=== PATIENT | male | born 1960 | race Caucasian/White ===

== ENCOUNTER 2019-01-25 04:57 | Inpatient (IN) | payer OTHER ==
[2019-01-25] MEDS ORDERED: morphine CARPU-JECT 4 MG/1 ML DISP.SYRIN IVPUSH ONE ×2 (05:42→06:26)
[2019-01-25] MEDS ORDERED: ONDANSETRON 4 MG/2 ML VIAL IVPUSH ONE (05:42)
[2019-01-25] MEDS ORDERED: ONDANSETRON 4 MG/2 ML VIAL ONE (05:48)
[2019-01-25] MEDS ORDERED: morphine SULFATE 4 MG/ML VIAL ONE (05:48)
[2019-01-25] MEDS ORDERED: HYDROmorphone HCL CARPU-JECT 2 MG/1 ML DISP.SYRIN IVPUSH ONE ×2 (06:30→10:42)
--- NOTE | 2019-01-25 06:46 | PDOC ---
History of Present Illness - General Chief Complaint: Pain Stated Complaint: ABD PAIN Time Seen by Provider: 01/25/19 05:43 History Source: Patient Exam Limitations: No Limitations - History of Present Illness Initial Comments: 58 yo M PMH HTN p/w squeezing abdominal pain. The pain woke him out of sleep at 0300, 10/10, has been there unrelentingly since waking. Denies CP, SOB, wheezing, HAIDER, dizziness, lightheadedness, constipation/diarrhea. 01/25/19 06:42 Past History - Past Medical History Allergies/Adverse Reactions: Allergies Allergy/AdvReac Type Severity Reaction Status Date / Time No Known Allergies Allergy Verified 01/25/19 05:07 Home Medications: Ambulatory Orders Aspirin [Aspirin EC] 81 mg PO PRN 01/25/19 Lisinopril/Hydrochlorothiazide [Lisinopril-Hctz 20-12.5 mg Tab] 1 each PO DAILY 01/25/19 COPD: No HTN: Yes - Surgical History Neurologic Surgery: Yes (back) - Suicide/Smoking/Psychosocial Hx Smoking History: Current every day smoker Have you smoked in the past 12 months: Yes Number of Cigarettes Smoked Daily: 40 Information on smoking cessation initiated: No Hx Alcohol Use: No Drug/Substance Use Hx: No Review of Systems - Review of Systems Able to Perform ROS?: Yes Constitutional: No: Chills, Fever ABD/GI: Yes: Nausea. No: Constipated, Diarrhea, Vomiting : No: Burning, Dysuria, Discharge, Frequency Neurological: No: Headache, Tingling, Tremors Endocrine: Yes: Excessive Sweating *Physical Exam - Vital Signs Last Vital Signs Temp Pulse Resp BP Pulse Ox 97.9 F 65 20 188/109 H 97 01/25/19 05:07 01/25/19 05:07 01/25/19 05:07 01/25/19 05:07 01/25/19 05:07 ED Treatment Course - LABORATORY CBC & Chemistry Diagram: 01/26/19 05:25 01/26/19 05:25 - Medications Given in the ED: ED Medications Discontinued Medications Generic Name Dose Route Start Last Admin Trade Name Freq PRN Reason Stop Dose Admin Morphine Sulfate 4 mg 01/25/19 05:42 01/25/19 05:53 Morphine Injection - IVPUSH 01/25/19 05:43 4 mg ONCE ONE Administration Ondansetron HCl 4 mg 01/25/19 05:42 01/25/19 05:55 Zofran Injection IVPUSH 01/25/19 05:43 4 mg ONCE ONE Administration Medical Decision Making - Medical Decision Making First, r/o aortic dissection. 01/25/19 06:[address] Power. 01/25/19 07:22 *DC/Admit/Observation/Transfer Diagnosis at time of Disposition: Cholelithiasis and acute cholecystitis without obstruction - Discharge Dispostion Condition at time of disposition: Improved - Referrals - Patient Instructions - Post Discharge Activity
[2019-01-25 07:02] LABS: BASO % 0.8 % (0-2.0); EOS % 3.5 % (0-4.5); HEMATOCRIT 50.7 % (35.4-49); HEMOGLOBIN 17.6 GM/dL (11.7-16.9); LYMPH % 28.4 % (8-40); MCHC 34.8 g/dl (32.0-35.9); MEAN CELL VOLUME 100.7 fl (80-96); MEAN PLT VOLUME 8.4 fl (7.5-11.1); MONO % 7.4 % (3.8-10.2); NEUT % 59.9 % (42.8-82.8); PLATELET COUNT 230 K/MM3 (134-434); RBC 5.03 M/mm3 (4.00-5.60); RDW 13.7 % (11.9-15.9); WHITE BLOOD COUNT 5.1 K/mm3 (4.0-10.0)
[2019-01-25] MEDS ORDERED: HYDROmorphone HCl 2 MG/ML VIAL ONE ×2 (07:04→10:44)
[2019-01-25 07:36] LABS: ALBUMIN 3.9 g/dl (3.4-5.0); ALK PHOS 73 U/L (45-117); ANION GAP 7 MMOL/L (8-16); BILIRUBIN,TOTAL 0.4 mg/dL (0.2-1); BLOOD UREA NITROGEN 9.1 mg/dL (7-18); CALCIUM 9.4 mg/dL (8.5-10.1); CHLORIDE 106 mmol/L (98-107); CO2 28 mmol/L (21-32); GLUCOSE,RANDOM 118 mg/dL (74-106); LIPASE 207 U/L (73-393); POTASSIUM 4.2 mmol/L (3.5-5.1); SGOT/AST 28 U/L (15-37); SGPT/ALT 32 U/L (13-61); SODIUM 140 mmol/L (136-145); TOT PROT 7.4 g/dl (6.4-8.2)
--- NOTE | 2019-01-25 07:47 | PDOC ---
*Physical Exam - Vital Signs Last Vital Signs Temp Pulse Resp BP Pulse Ox 97.9 F 65 20 188/109 H 97 01/25/19 05:07 01/25/19 05:07 01/25/19 05:07 01/25/19 05:07 01/25/19 05:07 - Physical Exam Comments: 01/25/19 12:11 Patient with pain control provided immediately preceding exam. Abd obese, soft, tender to palpation RUQ and toward umbilicus in same quadrant, negative juarez for me. No jaundice in sclera / sublingual ED Treatment Course - LABORATORY CBC & Chemistry Diagram: 01/25/19 06:15 01/25/19 06:15 - ADDITIONAL ORDERS Additional order review: Laboratory Results 01/25/19 01/25/19 01/25/19 06:15 06:15 06:15 PT with INR 12.70 INR 1.08 Sodium 140 Potassium 4.2 Chloride 106 Carbon Dioxide 28 Anion Gap 7 L BUN 9.1 Creatinine 1.0 Est GFR (CKD-EPI)AfAm 95.73 Est GFR (CKD-EPI)NonAf 82.60 Random Glucose 118 H Lactic Acid 1.9 Calcium 9.4 Total Bilirubin 0.4 AST 28 ALT 32 Alkaline Phosphatase 73 Creatine Kinase 90 Troponin I < 0.02 Total Protein 7.4 Albumin 3.9 Lipase 207 01/25/19 06:15 RBC 5.03 MCV 100.7 H MCHC 34.8 RDW 13.7 MPV 8.4 Neutrophils % 59.9 Lymphocytes % 28.4 Monocytes % 7.4 Eosinophils % 3.5 Basophils % 0.8 - Medications Given in the ED: ED Medications Discontinued Medications Generic Name Dose Route Start Last Admin Trade Name Shana PRN Reason Stop Dose Admin Hydromorphone HCl 0.5 mg 01/25/19 06:30 01/25/19 07:08 Dilaudid Injection - IVPUSH 01/25/19 06:31 0.5 mg ONCE ONE Administration Morphine Sulfate 4 mg 01/25/19 05:42 01/25/19 05:53 Morphine Injection - IVPUSH 01/25/19 05:43 4 mg ONCE ONE Administration Morphine Sulfate 4 mg 01/25/19 06:26 01/25/19 07:08 Morphine Injection - IVPUSH 01/25/19 06:27 Not Given ONCE ONE Ondansetron HCl 4 mg 01/25/19 05:42 01/25/19 05:55 Zofran Injection IVPUSH 01/25/19 05:43 4 mg ONCE ONE Administration Medical Decision Making - Medical Decision Making 01/25/19 07:43 58yo man with 10/10 squeezing abdominal pain since 3AM. Second episode (1 week ago, 3AM as well for 3 hours) of squeezing RUQ abdominal pain, not associated with meals. Afebrile, HDS. Sign-out received from Dr. Nino. -Abdominal CTA negative for dissection, demonstrated stones and enlarged GB -F/u RUQ GB US -CBC, CMP, PT/INR, Cardiac Profile, Lactate, Lipase all WNL -Afebrile 01/25/19 11:31 -HTN, Obese, >40yo -Required additional 0.5 Dilaudid for pain -US with slightly distended and thick-called (4.5mm) gallbladder with calculi. Borderline hepatomegaly with diffuse fatty infiltration of the liver. -Concern over continued requirement for pain medication, surgery consult 01/25/19 12:08 -Spoke with Dr. Mccarthy, pt admitted -Metronidazole 250 IV given *DC/Admit/Observation/Transfer Diagnosis at time of Disposition: Cholelithiasis and acute cholecystitis without obstruction - Discharge Dispostion Condition at time of disposition: Guarded - Referrals Referrals: Lavon Rivera MD [Primary Care Provider] - - Patient Instructions - Post Discharge Activity
[2019-01-25] MEDS ORDERED: METOCLOPRAMIDE HCL INJECTION 10 MG/2 ML VIAL ONE (10:44)
[2019-01-25 12:23] LABS: INR 0.99 (0.83-1.09); PROTHROMBIN TIME (PATIENT) 11.7 SEC (9.7-13.0)
--- NOTE | 2019-01-25 15:19 | CONSULT ---
Consult - Alcohol/Substance Use Hx Alcohol Use: No - Smoking History Smoking history: Current every day smoker Have you smoked in the past 12 months: Yes Aproximately how many cigarettes per day: 40 Home Medications - Allergies Allergies/Adverse Reactions: Allergies Allergy/AdvReac Type Severity Reaction Status Date / Time No Known Allergies Allergy Verified 01/25/19 05:07 Physical Exam Vital Signs: Vital Signs Temperature 98.1 F 01/25/19 10:03 Pulse Rate 63 01/25/19 10:03 Respiratory Rate 17 01/25/19 10:03 Blood Pressure 151/81 01/25/19 10:03 O2 Sat by Pulse Oximetry (%) 95 01/25/19 10:03 Labs: CBC, BMP 01/25/19 06:15 01/25/19 06:15
--- NOTE | 2019-01-25 15:25 | EKG ---
Test Reason : Blood Pressure : / mmHG Vent. Rate : 066 BPM Atrial Rate : 066 BPM P-R Int : 138 ms QRS Dur : 102 ms QT Int : 430 ms P-R-T Axes : 027 007 053 degrees QTc Int : 450 ms NORMAL SINUS RHYTHM NORMAL ECG NO PREVIOUS ECGS AVAILABLE Confirmed by MD CHARBEL, NICOLE ([id number]) on 01/25/2019 3:24:40 PM Referred By: Confirmed By:NICOLE BARGER MD
[2019-01-25] MEDS ORDERED: ONDANSETRON 4 MG/2 ML VIAL IVPUSH PRN (17:08)
[2019-01-25] MEDS ORDERED: LACTATED RINGERS SOLUTION 1000 ML INFUS.BAG IV ONE ×2 (17:15→17:45)
[2019-01-25] MEDS: LACTATED RINGERS SOLUTION 1,000 ML/1,000 ML INFUS.BAG IV SCH (17:22)
--- NOTE | 2019-01-25 17:25 | HP ---
Admitting History and Physical - Admission Chief Complaint: abdominal pain History of Present Illness: 58yo male PMH obesity, uncontrolled HTN, presented with upper abdominal pain acute in onset last night at 3AM. Pain was focal to the RUQ with radiation to the back. the pain was following a meal of pork chops. It has been constant since starting and IV pain medication was the only thing that seem to help. He had a similar episode of biliary colic 1 week ago after a meal of seafood, put seemed to improve after several hours. He denied fever, chills, nausea and vomiting. He was unaware of gall stones. He has not has not had a colonoscopy. He reports not regularly taking BP medication prescribed by Dr. Rivera. he had pressures 188/110 in the ED. We were asked to evaluate and treat. History Source: Patient, Medical Record Limitations to Obtaining History: No Limitations - Past Medical History Cardiovascular: Yes: HTN (incontrolled) Additional Past Medical History: obesity - Past Surgical History Additional Past Surgical History: Back surgery at [facility], Dental implants - Smoking History Smoking history: Current every day smoker Have you smoked in the past 12 months: Yes Aproximately how many cigarettes per day: 40 - Alcohol/Substance Use Hx Alcohol Use: No Home Medications - Allergies Allergies/Adverse Reactions: Allergies Allergy/AdvReac Type Severity Reaction Status Date / Time No Known Allergies Allergy Verified 01/25/19 05:07 - Home Medications Home Medications: Ambulatory Orders Aspirin [Aspirin EC] 81 mg PO PRN 01/25/19 Lisinopril/Hydrochlorothiazide [Lisinopril-Hctz 20-12.5 mg Tab] 1 each PO DAILY 01/25/19 Family Disease History - Family Disease History Family Disease History: Diabetes: Mother (DM type 2), Heart Disease: Father ( 2nd to [place] 8 years ago), Sister (CABG) Review of Systems - Review of Systems Constitutional: denies: Chills, Fever Eyes: denies: Double Vision, Recent Change in Vision HENT: denies: Throat Pain Neck: denies: Pain on Movement, Tenderness Cardiovascular: denies: Chest Pain, Palpitations Respiratory: denies: Cough, SOB Gastrointestinal: reports: Abdominal Pain, Indigestion. denies: Constipation, Diarrhea Breasts: reports: No Symptoms Reported. denies: Pain Musculoskeletal: reports: Back Pain. denies: Muscle Weakness Integumentary: denies: Lesions, Rash Neurological: denies: Seizure, Syncope Endocrine: denies: Unexplained Weight Gain, Unexplained Weight Loss Hematology/Lymphatic: denies: Easily Bruised, Excessive Bleeding Psychiatric: denies: Anxiety, Depression Physical Examination Vital Signs: Vital Signs Temperature 98.5 F 01/25/19 17:18 Pulse Rate 66 01/25/19 17:18 Respiratory Rate 18 01/25/19 17:18 Blood Pressure 169/95 01/25/19 17:18 O2 Sat by Pulse Oximetry (%) 95 01/25/19 17:18 Constitutional: Yes: Calm, Mild Distress, Obese Eyes: Yes: Conjunctiva Clear, EOM Intact HENT: Yes: Atraumatic, Normocephalic Neck: Yes: Supple, Trachea Midline Cardiovascular: Yes: Regular Rate and Rhythm, S1, S2 Respiratory: Yes: Regular, CTA Bilaterally Gastrointestinal: Yes: Normal Bowel Sounds, Soft, Abdomen, Obese, Hernia (small umbilcal hernia @ 10 oclock), Tenderness (RUQ, - murphys sign), Tenderness, Epigastrium. No: Hepatomegaly, Tenderness, Rebound ...Rectal Exam: Yes: Sphincter Tone Normal. No: Erythema, Hemorrhoids/External , Induration, Mass Renal/: No: CVA Tenderness - Left, CVA Tenderness - Right Breast(s): No: Mass, Skin Changes Musculoskeletal: Yes: Joint Stiffness (lumbar) Extremities: No: Cool, Cyanosis Edema: Yes Peripheral Pulses WNL: Yes Peripheral Pulses: Left Radial: 2+, Right Radial: 2+, Left Doralis Pedis: 2+, Right Dorsalis Pedis: 2+, Left Femoral: 2+, Right Femoral: 2+ Integumentary: No: Jaundice, Rash Neurological: Yes: Alert, Oriented Psychiatric: Yes: Alert, Oriented Labs: CBC, BMP 01/25/19 06:15 01/25/19 06:15 Imaging - Results Ultrasound: Report Reviewed, Image Reviewed Problem List - Problems (1) Cholelithiasis and acute cholecystitis without obstruction Assessment/Plan: 58yo male with uncontrolled HTN and symptomatic cholelithiasis NPO and IVF hydration perioperative IV antibiotics (given implants) Adequate analgesia Discussed with patient risks, benefits and alternatives of laparoscopic possible open cholecystectomy, including but not limited to bleeding, infection , injury to adjacent structures, leak or injury, intraabdominal abscess, incisional hernia, need for further procedures, ; alternatives include antibiotics, delayed or no surgery - risks of this include failure of nonoperative therapy, perforation, sepsis, recurrence, . Patient desires to proceed with operation - will take to OR for above. Informed consent signed for same. Code(s): K80.00 - CALCULUS OF GALLBLADDER W ACUTE CHOLECYST W/O OBSTRUCTION (2) Biliary colic symptom Code(s): K80.50 - CALCULUS OF BILE DUCT W/O CHOLANGITIS OR CHOLECYST W/O OBST (3) Abdominal pain in male Code(s): R10.9 - UNSPECIFIED ABDOMINAL PAIN (4) Obesity (BMI 30.0-34.9) Code(s): E66.9 - OBESITY, UNSPECIFIED (5) Dehydration Code(s): E86.0 - DEHYDRATION
--- NOTE | 2019-01-25 17:38 | CONSULT ---
Consultation: REQUESTING PROVIDER: Dr. Jasmine CONSULT REQUEST: We have been asked to medically evaluate this patient for katheryn- operative medical management of suspected acute cholecystitis HISTORY OF PRESENT ILLNESS: 58 yom with PMHx of HTN, obesity, suspected HARMAN, heavy smoker (almost 70 pack year smoking history) was in his USOH till today around 3 AM, when had sudden onset of squeezing abdominal pain, more in RUQ, failed to resolved for almost an hour, so drove himself to the ED. Positive chills, an episode of brownish, non bloody bilious vomiting. Currently pain resolved after receiving pain medications in the ED. Similar episode 1 week ago but was transient, so did not seek care. Reports high fatty food intake, but similar prior concerns. Independent in ADLs, can walk upto 5 miles without any concerns for exertional chest pain or dyspnea. 12 point ROS done, neg for cough, sputum dyspnea, orthopnea, PND, urinary symptoms, weakness, dizzinses, dark or bloody stools or concerns otherwise. Does report snoring at night. 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 Obese male, ( BMI 32) HEAD: Normal with no signs of trauma. EYES: Pupils equal, round and reactive to light, extraocular movements intact, sclera anicteric, conjunctiva clear. No lid lag. EARS, NOSE, THROAT: Ears normal, nares patent, oropharynx clear without exudates. Moist mucous membranes. NECK: Normal range of motion, supple without lymphadenopathy, JVD, or masses. LUNGS: Breath sounds equal, clear to auscultation bilaterally. No wheezes, and no crackles. No accessory muscle use. HEART: Regular rate and rhythm, normal S1 and S2 ABDOMEN: soft, RUQ tenderness, pos Narvaez's sign, no voluntary or involuntary guarding or rigidity, pos bowel sounds MUSCULOSKELETAL: Normal range of motion at all joints. No bony deformities or tenderness. No CVA tenderness. UPPER EXTREMITIES: 2+ pulses, warm, well-perfused. No cyanosis. No clubbing. Cap refill <2 seconds. No peripheral edema. LOWER EXTREMITIES: 2+ pulses, warm, well-perfused. No calf tenderness. No peripheral edema. NEUROLOGICAL: AAOx3, Cranial nerves II-XII intact. Normal speech. Normal gait. PSYCHIATRIC: Cooperative. Good eye contact. Appropriate mood and affect. Pleasant, joking SKIN: Warm, dry, normal turgor, no rashes or lesions noted. Laboratory Results - last 24 hr 01/25/19 01/25/19 01/25/19 06:15 06:15 06:15 WBC 5.1 RBC 5.03 Hgb 17.6 H Hct 50.7 H MCV 100.7 H MCH 35.0 H MCHC 34.8 RDW 13.7 Plt Count 230 MPV 8.4 Absolute Neuts (auto) 3.1 Neutrophils % 59.9 Lymphocytes % 28.4 Monocytes % 7.4 Eosinophils % 3.5 Basophils % 0.8 Nucleated RBC % 0 PT with INR 11.70 INR 0.99 Sodium 140 Potassium 4.2 Chloride 106 Carbon Dioxide 28 Anion Gap 7 L BUN 9.1 Creatinine 1.0 Est GFR (CKD-EPI)AfAm 95.73 Est GFR (CKD-EPI)NonAf 82.60 Random Glucose 118 H Lactic Acid Calcium 9.4 Total Bilirubin 0.4 AST 28 ALT 32 Alkaline Phosphatase 73 Creatine Kinase 90 Troponin I < 0.02 Total Protein 7.4 Albumin 3.9 Lipase 207 Blood Type Antibody Screen 01/25/19 01/25/19 06:15 06:15 WBC RBC Hgb Hct MCV MCH MCHC RDW Plt Count MPV Absolute Neuts (auto) Neutrophils % Lymphocytes % Monocytes % Eosinophils % Basophils % Nucleated RBC % PT with INR INR Sodium Potassium Chloride Carbon Dioxide Anion Gap BUN Creatinine Est GFR (CKD-EPI)AfAm Est GFR (CKD-EPI)NonAf Random Glucose Lactic Acid 1.9 Calcium Total Bilirubin AST ALT Alkaline Phosphatase Creatine Kinase Troponin I Total Protein Albumin Lipase Blood Type A NEGATIVE Antibody Screen Negative Active Medications Generic Name Dose Route Start Last Admin Trade Name Freq PRN Reason Stop Dose Admin Heparin Sodium (Porcine) 5,000 unit 01/25/19 18:00 Heparin - SQ Q8H-IV LONI Lactated Ringer's 1,000 ml in 1,000 mls @ 125 mls/hr 01/25/19 17:15 01/25/19 17:22 Lactated Ringers Solution IV 125 mls/hr ASDIR LONI Administration Morphine Sulfate 4 mg 01/25/19 17:08 Morphine Sulfate IVPUSH Q4H PRN PAIN LEVEL 7 - 10 Ondansetron HCl 4 mg 01/25/19 17:08 Zofran Injection IVPUSH Q6H PRN NAUSEA Home Medications Medication Instructions Recorded Aspirin [Aspirin EC] 81 mg PO PRN 01/25/19 Lisinopril/Hydrochlorothiazide 1 each PO DAILY 01/25/19 [Lisinopril-Hctz 20-12.5 mg Tab] EKG NSR, no acute ST-T changes CTA chest/A/P pelvis and abdominal ultrasound results reviewed. ASSESSMENT/PLAN: 58 yom with PMHx of HTN, obesity, smoker, admitted with acute calculous cholecystitis -Acute calculous cholecystitis without obstruction -Biliary colic -Uncontrolled HTN, suspect from pain -Obesity -Tobacco abuse/Dependence -Suspected HARMAN -Suspected mild COPD Plan: PO, surgical plans, antibiotics, pain control, IVF per Dr. Mccarthy Would hold Lisinopril/HCTZ in the katheryn-operative period while NPO and with hemodynamic shifts. Pain control. hydralazine prn, will assess for resumption of home ACEi based on hemodynamics and renal function in katheryn-operative period. . RCRI 0, patient 0.4% risk of cardiac , non fatal IA, non fatal cardiac arrest in the katheryn-operative period. Patient moderate risk from cardiovascular standpoint for urgent level of surgery. Recommend monitoring respiratory status monitoring in the katheryn-operative period , DVTPPX per surgery Dispo: We will continue to follow the patient. Thank you for this consultative opportunity. Visit type - Emergency Visit Emergency Visit: Yes Care time: The patient presented to the Emergency Department on the above date and was hospitalized for further evaluation of their emergent condition. - New Patient This patient is new to me today: Yes Date on this admission: 01/25/19 - Critical Care Critical Care patient: No
[2019-01-25] MEDS ORDERED: hydrALAZINE HCL 20 MG/ML VIAL IVPUSH PRN ×2 (18:10→18:25)
[2019-01-25] MEDS ORDERED: PNEUMOC 13-VAL CONJ-DIP CRM/PF 0.5 ML DISP.SYRIN IM ONE (18:26)
[2019-01-25] MEDS ORDERED: PNEUMOCOCCAL 23 VACCINE 0.5 ML VIAL IM ONE (18:30)
[2019-01-25] MEDS: MORPHINE SULFATE 2 MG/ML VIAL IVPUSH PRN (18:34)
[2019-01-25] MEDS: HEPARIN NA (PORCINE) 5,000 UNITS/ML 1ML VIAL SQ SCH (18:36)
[2019-01-25] MEDS: NICOTINE 21 MG/24 HOURS TOPICAL PATCH TD SCH (21:03)
[2019-01-26] MEDS: HEPARIN NA (PORCINE) 5,000 UNITS/ML 1ML VIAL SQ SCH ×3 (01:59→17:46)
[2019-01-26 06:15] LABS: BASO % 0.6 % (0-2.0); EOS % 0.1 % (0-4.5); HEMATOCRIT 47.7 % (35.4-49); HEMOGLOBIN 16.6 GM/dL (11.7-16.9); LYMPH % 7.1 % (8-40); MCH 34.8 pg (25.7-33.7); MCHC 34.9 g/dl (32.0-35.9); MEAN CELL VOLUME 99.8 fl (80-96); MEAN PLT VOLUME 8.7 fl (7.5-11.1); MONO % 5.7 % (3.8-10.2); NEUT % 86.5 % (42.8-82.8); PLATELET COUNT 179 K/MM3 (134-434); RBC 4.78 M/mm3 (4.00-5.60); RDW 13.5 % (11.9-15.9); WHITE BLOOD COUNT 11.4 K/mm3 (4.0-10.0)
[2019-01-26] MEDS ORDERED: PT OWN MED DRAWER 7, Y5N ONE (06:19)
[2019-01-26 06:56] LABS: BILIRUBIN,TOTAL 1.4 mg/dL (0.2-1); BLOOD UREA NITROGEN 6.5 mg/dL (7-18); CALCIUM 8.6 mg/dL (8.5-10.1); CREATININE 0.8 mg/dL (0.55-1.3); MAGNESIUM 1.8 mg/dL (1.8-2.4); PHOSPHOROUS 3.3 mg/dL (2.5-4.9); POTASSIUM 4.1 mmol/L (3.5-5.1); TOT PROT 6.1 g/dl (6.4-8.2)
--- NOTE | 2019-01-26 07:56 | PN ---
Physical Exam: SUBJECTIVE: Patient seen and examined at bed side, complain of RUQ pain , and diffuse abdominal tenderness , denies any fever , chills, N/V. OBJECTIVE: Vital Signs Period Temp Pulse Resp BP Sys/Peters Pulse Ox Last 24 Hr 97.3 F-99.3 F 62-78 17-20 137-186/77-98 95-97 GENERAL: AAOx3 in NAD HEAD: NC/AT EYES: EOMI, Conjunctiva clear, sclera anicteric ENT: moist mucous membrane NECK: Supple, no JVD LUNGS: CTA B/L, no crackles no wheezing no accessory muscle use. HEART: RRR, NSR, normal s1, s2, murmur no M/R/G ABDOMEN: obese , RUQ pain , diffuse tenderness , Narvaez positive. LOWER EXTREMITIES: no edema, +2DP pulse, NEUROLOGICAL: No focal deficit. Normal speech. gait not observed. PSYCHIATRIC: Cooperative. Good eye contact. Appropriate mood and affect. SKIN: Warm, dry, Laboratory Results - last 24 hr 01/25/19 01/25/19 01/25/19 06:15 06:15 20:00 WBC RBC Hgb Hct MCV MCH MCHC RDW Plt Count MPV Absolute Neuts (auto) Neutrophils % Lymphocytes % Monocytes % Eosinophils % Basophils % Nucleated RBC % PT with INR 11.70 INR 0.99 Sodium Potassium Chloride Carbon Dioxide Anion Gap BUN Creatinine Est GFR (CKD-EPI)AfAm Est GFR (CKD-EPI)NonAf Random Glucose Calcium Phosphorus Magnesium Total Bilirubin AST ALT Alkaline Phosphatase Total Protein Albumin Triglycerides Cholesterol Total LDL Cholesterol HDL Cholesterol Blood Type A NEGATIVE A NEGATIVE Antibody Screen Negative Negative 01/26/19 01/26/19 05:25 05:25 WBC 11.4 H RBC 4.78 Hgb 16.6 Hct 47.7 MCV 99.8 H MCH 34.8 H MCHC 34.9 RDW 13.5 Plt Count 179 D MPV 8.7 Absolute Neuts (auto) 9.8 H Neutrophils % 86.5 H D Lymphocytes % 7.1 L D Monocytes % 5.7 Eosinophils % 0.1 D Basophils % 0.6 Nucleated RBC % 0 PT with INR INR Sodium 138 Potassium 4.1 Chloride 104 Carbon Dioxide 26 Anion Gap 8 BUN 6.5 L Creatinine 0.8 Est GFR (CKD-EPI)AfAm 114.13 Est GFR (CKD-EPI)NonAf 98.47 Random Glucose 112 H Calcium 8.6 Phosphorus 3.3 Magnesium 1.8 Total Bilirubin 1.4 H AST 17 ALT 23 Alkaline Phosphatase 63 Total Protein 6.1 L Albumin 3.0 L Triglycerides 74 Cholesterol 146 Total LDL Cholesterol 80 HDL Cholesterol 50 Blood Type Antibody Screen Active Medications Generic Name Dose Route Start Last Admin Trade Name Freq PRN Reason Stop Dose Admin Heparin Sodium (Porcine) 5,000 unit 01/25/19 18:00 01/26/19 01:59 Heparin - SQ 5,000 unit Q8H-IV LONI Administration Hydralazine HCl 10 mg 01/25/19 18:25 Apresoline Injection - IVPUSH Q6H PRN HYPERTENSION Lactated Ringer's 1,000 ml in 1,000 mls @ 125 mls/hr 01/25/19 17:15 01/25/19 17:22 Lactated Ringers Solution IV 125 mls/hr ASDIR LONI Administration Metronidazole 250 mg in 50 mls @ 50 mls/hr 01/25/19 20:15 01/26/19 02:50 Flagyl 250mg Premixed Ivpb - IVPB 50 mls/hr Q8H-IV LONI Administration Morphine Sulfate 4 mg 01/25/19 17:08 01/25/19 18:34 Morphine Sulfate IVPUSH 4 mg Q4H PRN Administration PAIN LEVEL 7 - 10 Nicotine 21 mg 01/25/19 20:30 01/25/19 21:03 Nicoderm Patch - TD 21 mg DAILY LONI Administration Ondansetron HCl 4 mg 01/25/19 17:08 Zofran Injection IVPUSH Q6H PRN NAUSEA ASSESSMENT/PLAN: 58 year old obese male with h.o HTN preseneted with recurrent RUQ pain was found to have acute cholecystitis admitted for LAb cholecystectomy. # Biliary Cholic # Cholilithisis with acute cholecystitis # Uncontrolled HTN # Obesity # Nicotin dependence Plan: * US reviewed with gall bladder wall thickening , no CBD dilation * Abx per ID started on Zosyn * NPO * pain control with morphine * Lab choley by Shari today * IV fluids RL @ 125 CC/hr per surgery * Type and screen , * PT, PTT INR , cbc , cmp * moderate risk for moderate risk surgery * Incentive spirometry * monitor lab * Hydralizine PRN for HTN while NPO * DVTS proph * Zofran for nausea * Monitor in M/S * Nicotine patch Visit type - Emergency Visit Emergency Visit: Yes ED Registration Date: 01/25/19 Care time: The patient presented to the Emergency Department on the above date and was hospitalized for further evaluation of their emergent condition. - New Patient This patient is new to me today: Yes Date on this admission: 01/26/19 - Critical Care Critical Care patient: No ATTENDING PHYSICIAN STATEMENT I saw and evaluated the patient. I reviewed the resident's note and discussed the case with the resident. I agree with the resident's findings and plan as documented. SUBJECTIVE: OBJECTIVE: ASSESSMENT AND PLAN:
[2019-01-26] MEDS: NICOTINE 21 MG/24 HOURS TOPICAL PATCH TD SCH (09:31)
[2019-01-26] MEDS: MORPHINE SULFATE 2 MG/ML VIAL IVPUSH PRN ×3 (10:39→21:30)
--- NOTE | 2019-01-26 12:25 | PN ---
Progress Note, Physician Chief Complaint: abdominal pain History of Present Illness: 58yo male PMH obesity, uncontrolled HTN, presented with upper abdominal pain acute in onset last night at 3AM. Pain was focal to the RUQ with radiation to the back. He has had persistent abdominal pain and complains of hunger. l - Current Medication List Current Medications: Active Medications Heparin Sodium (Porcine) (Heparin -) 5,000 unit SQ Q8H-IV LONI Last Admin: 01/26/19 09:30 Dose: Not Given Hydralazine HCl (Apresoline Injection -) 10 mg IVPUSH Q6H PRN PRN Reason: HYPERTENSION Lactated Ringer's (Lactated Ringers Solution) 1,000 ml in 1,000 mls @ 125 mls/ hr IV ASDIR LONI Last Admin: 01/25/19 17:22 Dose: 125 mls/hr Metronidazole (Flagyl 250mg Premixed Ivpb -) 250 mg in 50 mls @ 50 mls/hr IVPB Q8H-IV LONI Last Admin: 01/26/19 11:21 Dose: 50 mls/hr Morphine Sulfate (Morphine Sulfate) 4 mg IVPUSH Q4H PRN PRN Reason: PAIN LEVEL 7 - 10 Last Admin: 01/26/19 10:39 Dose: 4 mg Nicotine (Nicoderm Patch -) 21 mg TD DAILY [facility] Last Admin: 01/26/19 09:31 Dose: 21 mg Ondansetron HCl (Zofran Injection) 4 mg IVPUSH Q6H PRN PRN Reason: NAUSEA - Objective Vital Signs: Vital Signs Temperature 98.5 F 01/26/19 09:09 Pulse Rate 85 01/26/19 09:09 Respiratory Rate 20 01/26/19 09:09 Blood Pressure 149/81 01/26/19 09:09 O2 Sat by Pulse Oximetry (%) 97 01/25/19 21:00 Vital Signs Period Temp Pulse Resp BP Sys/Peters Pulse Ox Last 24 Hr 98 F-99.2 F 87-95 20-20 140-144/67-92 97 Constitutional: Yes: Well Nourished, No Distress, Calm, Obese Eyes: Yes: Conjunctiva Clear, EOM Intact HENT: Yes: Atraumatic, Normocephalic Neck: Yes: Supple, Trachea Midline Cardiovascular: Yes: Regular Rate and Rhythm, S1, S2 Respiratory: Yes: Regular, CTA Bilaterally Labs: CBC, BMP 01/26/19 05:25 01/26/19 05:25 INR, PTT INR 0.99 (0.83-1.09) 01/25/19 06:15 Problem List - Problems (1) Cholelithiasis and acute cholecystitis without obstruction Assessment/Plan: 58yo male with uncontrolled HTN obesity and symptomatic cholelithiasis with now elevated Tbili 1.4-1.6, unable to di MRCP, can do IOC but OR not equiped to do stone retrieval or intervention. Will consult GI for possible ERCP. NPO and IVF hydartion IV antibiotics per ID GI consult cancel surgery for now This patient will be managed non-operatively Code(s): K80.00 - CALCULUS OF GALLBLADDER W ACUTE CHOLECYST W/O OBSTRUCTION (2) Biliary colic symptom Code(s): K80.50 - CALCULUS OF BILE DUCT W/O CHOLANGITIS OR CHOLECYST W/O OBST (3) Abdominal pain in male Code(s): R10.9 - UNSPECIFIED ABDOMINAL PAIN (4) Obesity (BMI 30.0-34.9) Code(s): E66.9 - OBESITY, UNSPECIFIED (5) Dehydration Code(s): E86.0 - DEHYDRATION
--- NOTE | 2019-01-26 12:58 | CON.ID ---
Consult Consult Specialty:: infectious diseases Referred by:: Reason for Consultation:: abd pain,choleycystitis,leukocytosis - History of Present Illness Chief Complaint: rt upper quadrant abd pain History of Present Illness: 58yo male PMH obesity, uncontrolled HTN, presented with upper abdominal pain according to the patient came on suddenly last night at 3am currently the pain is pretty severe according to the patient he had similar pain about one week back which improved.he had a meal of pork chops . Pain is in ruq and abd is distended He denied fever, chills, nausea and vomiting. He was unaware of gall stones. patient seen by surgical team and plan is for cholecystectomy today - History Source History Provided By: Patient Limitations to Obtaining History: No Limitations - Past Medical History Cardio/Vascular: Yes: HTN (incontrolled) - Alcohol/Substance Use Hx Alcohol Use: No - Smoking History Smoking history: Current every day smoker Have you smoked in the past 12 months: Yes Aproximately how many cigarettes per day: 40 Home Medications - Allergies Allergies/Adverse Reactions: Allergies Allergy/AdvReac Type Severity Reaction Status Date / Time No Known Allergies Allergy Verified 01/25/19 05:07 - Home Medications Home Medications: Ambulatory Orders Aspirin [Aspirin EC] 81 mg PO PRN 01/25/19 Lisinopril/Hydrochlorothiazide [Lisinopril-Hctz 20-12.5 mg Tab] 1 each PO DAILY 01/25/19 Family Disease History - Family Disease History Family Disease History: Diabetes: Mother (DM type 2), Heart Disease: Father ( 2nd to [place] 8 years ago), Sister (CABG) Review of Systems - Review of Systems Constitutional: reports: No Symptoms Eyes: reports: No Symptoms HENT: reports: No Symptoms Neck: reports: No Symptoms Cardiovascular: reports: No Symptoms Respiratory: reports: No Symptoms Gastrointestinal: reports: Abdominal Pain Genitourinary: reports: No Symptoms Musculoskeletal: reports: No Symptoms Integumentary: reports: No Symptoms Neurological: reports: No Symptoms Endocrine: reports: No Symptoms Hematology/Lymphatic: reports: No Symptoms Psychiatric: reports: No Symptoms Physical Exam Vital Signs: Vital Signs Temperature 98.5 F 01/26/19 09:09 Pulse Rate 85 01/26/19 09:09 Respiratory Rate 20 01/26/19 09:09 Blood Pressure 149/81 01/26/19 09:09 O2 Sat by Pulse Oximetry (%) 97 01/25/19 21:00 Constitutional: Yes: Well Nourished, Moderate Distress, Obese Eyes: Yes: Conjunctiva Clear Neck: Yes: Supple, Trachea Midline Cardiovascular: Yes: Regular Rate and Rhythm Respiratory: Yes: Regular, CTA Bilaterally Gastrointestinal: Yes: Distention, Tenderness (ruq), Other (absent bowel sounds) Musculoskeletal: Yes: WNL Extremities: Yes: WNL Neurological: Yes: Alert, Oriented Psychiatric: Yes: Alert, Oriented Labs: CBC, BMP 01/26/19 05:25 01/26/19 05:25 Imaging - Results Chest X-ray: Report Reviewed, Image Reviewed Cat Scan: Report Reviewed, Image Reviewed Ultrasound: Report Reviewed, Image Reviewed Assessment/Plan Problem List - Problems (1) Cholelithiasis and acute cholecystitis without obstruction Code(s): K80.00 - CALCULUS OF GALLBLADDER W ACUTE CHOLECYST W/O OBSTRUCTION (2) Biliary colic symptom Code(s): K80.50 - CALCULUS OF BILE DUCT W/O CHOLANGITIS OR CHOLECYST W/O OBST (3) Abdominal pain in male Code(s): R10.9 - UNSPECIFIED ABDOMINAL PAIN (4) Obesity (BMI 30.0-34.9) Code(s): E66.9 - OBESITY, UNSPECIFIED (5) Dehydration Code(s): E86.0 - DEHYDRATION plan will start patient on zosyn close monitoring of tenderness surgery on case rest as per the team
[2019-01-26] MEDS ORDERED: PIPERACILLIN/TAZOBACTAM 3.375 GM VIAL IVPB ONE ×2 (13:23→17:18)
[2019-01-26] MEDS ORDERED: DEXTROSE 5%-WATER - 50 ML IVPB ONE ×2 (13:23→17:18)
[2019-01-26] MEDS: PIPERACILLIN/TAZOB 3.375 GM 3.375 GM in DEXTROSE 5%-WATER - 50 ML IVPB SCH ×2 (13:31→17:46)
[2019-01-26] MEDS: LACTATED RINGERS SOLUTION 1,000 ML/1,000 ML INFUS.BAG IV SCH ×3 (15:11→22:56)
--- NOTE | 2019-01-26 17:41 | PN ---
Teaching Attending Note Name of Resident: Jabari Brambila ATTENDING PHYSICIAN STATEMENT I saw and evaluated the patient. I reviewed the resident's note and discussed the case with the resident. I agree with the resident's findings and plan as documented. SUBJECTIVE: Mr Wilkerson complains of abdominal pain. Denies cp and sob. Asking when his surgery is OBJECTIVE: Last Vital Signs Temp Pulse Resp BP Pulse Ox 37.1 C 95 H 20 140/92 97 01/26/19 15:00 01/26/19 15:00 01/26/19 15:00 01/26/19 15:00 01/25/19 21:00 Gen: nad, obese Pulm: ctab w/o w/r/r CV: rrr w/o m/r/g Abd: +bs, TTP in RUQ Ext: no c/c/e CBC, BMP 01/26/19 05:25 01/26/19 05:25 ASSESSMENT AND PLAN: Problem List - Problems (1) Cholelithiasis and acute cholecystitis without obstruction Assessment/Plan: -planning for surgery today -ID note reviewed -started on zosyn Code(s): K80.00 - CALCULUS OF GALLBLADDER W ACUTE CHOLECYST W/O OBSTRUCTION (2) HTN (hypertension) Assessment/Plan: -restart lisinopril and HCTZ after surgery Code(s): I10 - ESSENTIAL (PRIMARY) HYPERTENSION
[2019-01-27] MEDS ORDERED: DEXTROSE 5%-WATER - 50 ML IVPB ONE ×3 (02:34→17:11)
[2019-01-27] MEDS ORDERED: PIPERACILLIN/TAZOBACTAM 3.375 GM VIAL IVPB ONE ×3 (02:34→17:11)
[2019-01-27] MEDS: HEPARIN NA (PORCINE) 5,000 UNITS/ML 1ML VIAL SQ SCH ×3 (02:44→18:04)
[2019-01-27] MEDS: PIPERACILLIN/TAZOB 3.375 GM 3.375 GM in DEXTROSE 5%-WATER - 50 ML IVPB SCH ×3 (02:44→18:04)
[2019-01-27] MEDS: MORPHINE SULFATE 2 MG/ML VIAL IVPUSH PRN ×2 (06:21→14:32)
[2019-01-27] MEDS: LACTATED RINGERS SOLUTION 1,000 ML/1,000 ML INFUS.BAG IV SCH ×2 (08:53→17:33)
--- NOTE | 2019-01-27 08:58 | PN ---
Progress Note, Physician History of Present Illness: patient still with abd pain plan for surgery today - Current Medication List Current Medications: Active Medications Heparin Sodium (Porcine) (Heparin -) 5,000 unit SQ Q8H-IV LONI Last Admin: 01/27/19 02:44 Dose: 5,000 unit Hydralazine HCl (Apresoline Injection -) 10 mg IVPUSH Q6H PRN PRN Reason: HYPERTENSION Lactated Ringer's (Lactated Ringers Solution) 1,000 ml in 1,000 mls @ 125 mls/ hr IV ASDIR LONI Last Admin: 01/27/19 08:53 Dose: 125 mls/hr Piperacillin Sod/Tazobactam (Sod 3.375 gm/ Dextrose) 50 mls @ 100 mls/hr IVPB Q8H-IV LONI; Protocol Last Admin: 01/27/19 02:44 Dose: 100 mls/hr Morphine Sulfate (Morphine Sulfate) 4 mg IVPUSH Q4H PRN PRN Reason: PAIN LEVEL 7 - 10 Last Admin: 01/27/19 06:21 Dose: 4 mg Nicotine (Nicoderm Patch -) 21 mg TD DAILY [facility] Last Admin: 01/26/19 09:31 Dose: 21 mg Ondansetron HCl (Zofran Injection) 4 mg IVPUSH Q6H PRN PRN Reason: NAUSEA - Objective Vital Signs: Vital Signs Temperature 98 F 01/27/19 05:00 Pulse Rate 90 01/27/19 05:00 Respiratory Rate 20 01/27/19 05:00 Blood Pressure 140/67 01/27/19 05:00 O2 Sat by Pulse Oximetry (%) 97 01/26/19 21:00 Constitutional: Yes: Calm, Mild Distress Cardiovascular: Yes: Regular Rate and Rhythm Respiratory: Yes: Regular, CTA Bilaterally Gastrointestinal: Yes: Normal Bowel Sounds, Soft Musculoskeletal: Yes: WNL Extremities: Yes: WNL Neurological: Yes: Alert, Oriented Psychiatric: Yes: Alert, Oriented Labs: CBC, BMP 01/26/19 05:25 01/26/19 05:25 INR, PTT INR 0.99 (0.83-1.09) 01/25/19 06:15 Assessment/Plan Problem List - Problems (1) Cholelithiasis and acute cholecystitis without obstruction Code(s): K80.00 - CALCULUS OF GALLBLADDER W ACUTE CHOLECYST W/O OBSTRUCTION (2) Biliary colic symptom Code(s): K80.50 - CALCULUS OF BILE DUCT W/O CHOLANGITIS OR CHOLECYST W/O OBST (3) Abdominal pain in male Code(s): R10.9 - UNSPECIFIED ABDOMINAL PAIN (4) Obesity (BMI 30.0-34.9) Code(s): E66.9 - OBESITY, UNSPECIFIED (5) Dehydration Code(s): E86.0 - DEHYDRATION plan continue abx await for surgery rest as per the team
[2019-01-27 09:19] LABS: BASO % 0.6 % (0-2.0); EOS % 0.3 % (0-4.5); HEMOGLOBIN 16.4 GM/dL (11.7-16.9); LYMPH % 6.9 % (8-40); MCH 35.1 pg (25.7-33.7); MCHC 34.8 g/dl (32.0-35.9); MEAN CELL VOLUME 100.9 fl (80-96); MEAN PLT VOLUME 8.8 fl (7.5-11.1); MONO % 6.1 % (3.8-10.2); NEUT % 86.1 % (42.8-82.8); PLATELET COUNT 174 K/MM3 (134-434); RBC 4.66 M/mm3 (4.00-5.60); RDW 13.5 % (11.9-15.9); WHITE BLOOD COUNT 13.7 K/mm3 (4.0-10.0)
[2019-01-27 09:56] LABS: ALBUMIN 2.8 g/dl (3.4-5.0); BILIRUBIN,TOTAL 1.6 mg/dL (0.2-1); BLOOD UREA NITROGEN 8.8 mg/dL (7-18); CALCIUM 8.5 mg/dL (8.5-10.1); CREATININE 0.9 mg/dL (0.55-1.3); POTASSIUM 3.9 mmol/L (3.5-5.1)
[2019-01-27] MEDS: NICOTINE 21 MG/24 HOURS TOPICAL PATCH TD SCH (10:12)
--- NOTE | 2019-01-27 11:57 | PN ---
Physical Exam: SUBJECTIVE: Patient seen and examined still NPO wbc elavted and surgery was delyed to R.O CBD stone . feeling hungry , but no fever chills or chest pain was reported. OBJECTIVE: Vital Signs Period Temp Pulse Resp BP Sys/Peters Pulse Ox Last 24 Hr 98 F-99.2 F 87-95 20-20 140-144/67-92 97 GENERAL: AAOx3 in NAD HEAD: NC/AT EYES: EOMI, Conjunctiva clear, sclera anicteric ENT: moist mucous membrane NECK: Supple, no JVD LUNGS: CTA B/L, no crackles no wheezing no accessory muscle use. HEART: RRR, NSR, normal s1, s2, murmur no M/R/G ABDOMEN: obese , RUQ pain , diffuse tenderness , Narvaez positive. LOWER EXTREMITIES: no edema, +2DP pulse, NEUROLOGICAL: No focal deficit. Normal speech. gait not observed. PSYCHIATRIC: Cooperative. Good eye contact. Appropriate mood and affect. SKIN: Warm, dry, Laboratory Results - last 24 hr 01/27/19 01/27/19 01/27/19 08:02 08:02 11:41 WBC 13.7 H RBC 4.66 Hgb 16.4 Hct 47.0 MCV 100.9 H MCH 35.1 H MCHC 34.8 RDW 13.5 Plt Count 174 MPV 8.8 Absolute Neuts (auto) 11.8 H Neutrophils % 86.1 H Lymphocytes % 6.9 L Monocytes % 6.1 Eosinophils % 0.3 D Basophils % 0.6 Nucleated RBC % 0 Sodium 138 Potassium 3.9 Chloride 103 Carbon Dioxide 24 Anion Gap 10 BUN 8.8 Creatinine 0.9 Est GFR (CKD-EPI)AfAm 108.73 Est GFR (CKD-EPI)NonAf 93.82 POC Glucometer 120 Random Glucose 85 Calcium 8.5 Total Bilirubin 1.6 H AST 14 L ALT 18 Alkaline Phosphatase 59 Total Protein 6.0 L Albumin 2.8 L Active Medications Generic Name Dose Route Start Last Admin Trade Name Freq PRN Reason Stop Dose Admin Heparin Sodium (Porcine) 5,000 unit 01/25/19 18:00 01/27/19 10:12 Heparin - SQ 5,000 unit Q8H-IV LONI Administration Hydralazine HCl 10 mg 01/25/19 18:25 Apresoline Injection - IVPUSH Q6H PRN HYPERTENSION Lactated Ringer's 1,000 ml in 1,000 mls @ 125 mls/hr 01/25/19 17:15 01/27/19 08:53 Lactated Ringers Solution IV 125 mls/hr ASDIR LONI Administration Piperacillin Sod/Tazobactam 50 mls @ 100 mls/hr 01/26/19 13:00 01/27/19 10:12 Sod 3.375 gm/ Dextrose IVPB 100 mls/hr Q8H-IV LONI Administration Protocol Morphine Sulfate 4 mg 01/25/19 17:08 01/27/19 06:21 Morphine Sulfate IVPUSH 4 mg Q4H PRN Administration PAIN LEVEL 7 - 10 Nicotine 21 mg 01/25/19 20:30 01/27/19 10:12 Nicoderm Patch - TD 21 mg DAILY LONI Administration Ondansetron HCl 4 mg 01/25/19 17:08 Zofran Injection IVPUSH Q6H PRN NAUSEA CBC, BMP 01/27/19 08:02 01/27/19 08:02 ASSESSMENT/PLAN: 58 year old obese male with h.o HTN preseneted with recurrent RUQ pain was found to have acute cholecystitis admitted for LAb cholecystectomy. # Biliary Cholic # Cholilithisis with acute cholecystitis # Uncontrolled HTN # Obesity # Nicotin dependence # worsening Leuckocytosis r.o sepsis # R.O choledocholithiasis Plan: * US reviewed with gall bladder wall thickening , no CBD dilation * Abx per ID started on Zosyn cont * NPO * pain control with morphine * Lab choley by Shari pending GI evaluation to R.O CBD stones * IV fluids RL @ 125 CC/hr per surgery * Type and screen , * PT, PTT INR , cbc , cmp * moderate risk for moderate risk surgery * Incentive spirometry * monitor lab * Hydralizine PRN for HTN while NPO * DVTS proph * Zofran for nausea * Monitor in M/S * Nicotine patch Visit type - Emergency Visit Emergency Visit: Yes ED Registration Date: 01/25/19 Care time: The patient presented to the Emergency Department on the above date and was hospitalized for further evaluation of their emergent condition. - New Patient This patient is new to me today: No - Critical Care Critical Care patient: No ATTENDING PHYSICIAN STATEMENT I saw and evaluated the patient. I reviewed the resident's note and discussed the case with the resident. I agree with the resident's findings and plan as documented. SUBJECTIVE: OBJECTIVE: ASSESSMENT AND PLAN:
[2019-01-27] MEDS ORDERED: ACETAMINOPHEN 1000 MG/100 ML VIAL (NON FORMULARY) IVPB ONE (17:20)
--- NOTE | 2019-01-27 18:04 | PN ---
Teaching Attending Note Name of Resident: Jabari Brambila ATTENDING PHYSICIAN STATEMENT I saw and evaluated the patient. I reviewed the resident's note and discussed the case with the resident. I agree with the resident's findings and plan as documented. SUBJECTIVE: Mr Wilkerson is frustrated that his surgery has not occurred yet. His abdominal pain is controlled. Denies cp and sob. OBJECTIVE: Last Vital Signs Temp Pulse Resp BP Pulse Ox 37.4 C 90 20 156/103 H 95 01/27/19 17:22 01/27/19 17:22 01/27/19 17:22 01/27/19 17:22 01/27/19 09:00 Gen: nad Pulm: ctab w/o w/r/r CV: rrr w/o m/r/g Abd: +bs, s/nd, TTP in RUQ Ext: no c/c/e CBC, BMP 01/27/19 08:02 01/27/19 08:02 ASSESSMENT AND PLAN: (1) Cholelithiasis and acute cholecystitis without obstruction Assessment/Plan: -case d/w Dr Mccarthy -concern for possible biliary stone -GI to be consulted Code(s): K80.00 - CALCULUS OF GALLBLADDER W ACUTE CHOLECYST W/O OBSTRUCTION (2) HTN (hypertension) Assessment/Plan: -restart lisinopril and HCTZ after surgery -slightly elevated but not urgent -prn IV hydralazine Code(s): I10 - ESSENTIAL (PRIMARY) HYPERTENSION Problem List - Problems (1) Cholelithiasis and acute cholecystitis without obstruction Code(s): K80.00 - CALCULUS OF GALLBLADDER W ACUTE CHOLECYST W/O OBSTRUCTION (2) HTN (hypertension) Code(s): I10 - ESSENTIAL (PRIMARY) HYPERTENSION
--- NOTE | 2019-01-27 19:29 | CON.GI ---
Consult Consult Specialty:: GI - History of Present Illness History of Present Illness: 58 y/o male was doing well until 3 days ago when he developed 10/10 epigastric and RUQ pain associated with T.bili 1.3. On admission the ultrasound revealed a stone in the gallbladder neck associated with thickened gallbladder wall, normal CBD and intrahepatic duct. I was to see patient to perform ERCP prior to cholecystectomy. - Past Medical History Cardio/Vascular: Yes: HTN (incontrolled) - Alcohol/Substance Use Hx Alcohol Use: No - Smoking History Smoking history: Current every day smoker Have you smoked in the past 12 months: Yes Aproximately how many cigarettes per day: 40 Home Medications - Allergies Allergies/Adverse Reactions: Allergies Allergy/AdvReac Type Severity Reaction Status Date / Time No Known Allergies Allergy Verified 01/25/19 05:07 - Home Medications Home Medications: Ambulatory Orders Aspirin [Aspirin EC] 81 mg PO PRN 01/25/19 Lisinopril/Hydrochlorothiazide [Lisinopril-Hctz 20-12.5 mg Tab] 1 each PO DAILY 01/25/19 Family Disease History - Family Disease History Family Disease History: Diabetes: Mother (DM type 2), Heart Disease: Father ( 2nd to [place] 8 years ago), Sister (CABG) Physical Exam-GI Vital Signs: Vital Signs Temperature 98.8 F 01/27/19 18:15 Pulse Rate 88 01/27/19 18:15 Respiratory Rate 20 01/27/19 18:15 Blood Pressure 147/87 01/27/19 18:15 O2 Sat by Pulse Oximetry (%) 95 01/27/19 09:00 Constitutional: Yes: Obese Eyes: Yes: Conjunctiva Clear HENT: Yes: Atraumatic Neck: Yes: Trachea Midline Cardiovascular: Yes: Regular Rate and Rhythm Respiratory: Yes: CTA Bilaterally ...Palpate: Yes: Soft, Tenderness (--ruq). No: Firm/Rigid, Guarding, Hepatomegaly, Mass, Splenomegaly Labs: CBC, BMP 01/27/19 08:02 01/27/19 08:02 INR, PTT INR 0.99 (0.83-1.09) 01/25/19 06:15 Problem List - Problems (1) Acute cholecystitis Assessment/Plan: associated with mild elevation T.bili R> d/w Dr Mccarthy, patient unlikely has CBD stone however will need intraop cholangiogram MRCP could not be done because of screw and plated in his back Code(s): K81.0 - ACUTE CHOLECYSTITIS
[2019-01-28] MEDS ORDERED: PIPERACILLIN/TAZOBACTAM 3.375 GM VIAL IVPB ONE ×2 (01:22→09:14)
[2019-01-28] MEDS ORDERED: DEXTROSE 5%-WATER - 50 ML IVPB ONE ×2 (01:22→09:14)
[2019-01-28] MEDS: LACTATED RINGERS SOLUTION 1,000 ML/1,000 ML INFUS.BAG IV SCH (01:27)
[2019-01-28] MEDS: MORPHINE SULFATE 2 MG/ML VIAL IVPUSH PRN (01:27)
[2019-01-28] MEDS: PIPERACILLIN/TAZOB 3.375 GM 3.375 GM in DEXTROSE 5%-WATER - 50 ML IVPB SCH ×3 (01:27→18:23)
[2019-01-28] MEDS: HEPARIN NA (PORCINE) 5,000 UNITS/ML 1ML VIAL SQ SCH ×3 (01:35→21:31)
[2019-01-28] MEDS ORDERED: PT OWN MED DRAWER 7, Y5N ONE ×2 (04:18→04:41)
[2019-01-28] MEDS ORDERED: ACETAMINOPHEN 1000 MG/100 ML VIAL (NON FORMULARY) IVPB PRN (08:45)
[2019-01-28 08:59] LABS: BASO % 0.8 % (0-2.0); HEMATOCRIT 47.1 % (35.4-49); HEMOGLOBIN 16.5 GM/dL (11.7-16.9); LYMPH % 3.4 % (8-40); MCH 35.3 pg (25.7-33.7); MEAN CELL VOLUME 100.8 fl (80-96); MONO % 4.1 % (3.8-10.2); NEUT % 91.7 % (42.8-82.8); PLATELET COUNT 190 K/MM3 (134-434); RBC 4.67 M/mm3 (4.00-5.60); RDW 13.4 % (11.9-15.9); WHITE BLOOD COUNT 16.7 K/mm3 (4.0-10.0)
[2019-01-28] MEDS: NICOTINE 21 MG/24 HOURS TOPICAL PATCH TD SCH (09:20)
--- NOTE | 2019-01-28 09:32 | PN ---
Progress Note, Physician History of Present Illness: stable still with abd pain plan for surgery today - Current Medication List Current Medications: Active Medications Acetaminophen (Ofirmev Injection -) 1,000 mg IVPB Q8H PRN PRN Reason: PAIN Last Admin: 01/28/19 09:19 Dose: 1,000 mg Heparin Sodium (Porcine) (Heparin -) 5,000 unit SQ Q8H-IV LONI Last Admin: 01/28/19 01:35 Dose: 5,000 unit Hydralazine HCl (Apresoline Injection -) 10 mg IVPUSH Q6H PRN PRN Reason: HYPERTENSION Last Admin: 01/28/19 04:38 Dose: 10 mg Lactated Ringer's (Lactated Ringers Solution) 1,000 ml in 1,000 mls @ 125 mls/ hr IV ASDIR LONI Last Admin: 01/28/19 01:27 Dose: 125 mls/hr Piperacillin Sod/Tazobactam (Sod 3.375 gm/ Dextrose) 50 mls @ 100 mls/hr IVPB Q8H-IV LONI; Protocol Last Admin: 01/28/19 09:20 Dose: 100 mls/hr Morphine Sulfate (Morphine Sulfate) 4 mg IVPUSH Q4H PRN PRN Reason: PAIN LEVEL 7 - 10 Last Admin: 01/28/19 01:27 Dose: 4 mg Nicotine (Nicoderm Patch -) 21 mg TD DAILY [facility] Last Admin: 01/28/19 09:20 Dose: 21 mg Ondansetron HCl (Zofran Injection) 4 mg IVPUSH Q6H PRN PRN Reason: NAUSEA - Objective Vital Signs: Vital Signs Temperature 97.9 F 01/28/19 05:34 Pulse Rate 99 H 01/28/19 05:34 Respiratory Rate 18 01/28/19 05:34 Blood Pressure 160/98 01/28/19 05:34 O2 Sat by Pulse Oximetry (%) 96 01/27/19 21:00 Constitutional: Yes: No Distress, Calm Cardiovascular: Yes: S1, S2 Respiratory: Yes: Regular, CTA Bilaterally Gastrointestinal: Yes: Soft, Tenderness Musculoskeletal: Yes: WNL Extremities: Yes: WNL Neurological: Yes: Alert, Oriented Psychiatric: Yes: Alert, Oriented Labs: CBC, BMP 01/28/19 07:51 INR, PTT INR 0.99 (0.83-1.09) 01/25/19 06:15 Assessment/Plan Problem List - Problems (1) Cholelithiasis and acute cholecystitis without obstruction Code(s): K80.00 - CALCULUS OF GALLBLADDER W ACUTE CHOLECYST W/O OBSTRUCTION (2) Biliary colic symptom Code(s): K80.50 - CALCULUS OF BILE DUCT W/O CHOLANGITIS OR CHOLECYST W/O OBST (3) Abdominal pain in male Code(s): R10.9 - UNSPECIFIED ABDOMINAL PAIN (4) Obesity (BMI 30.0-34.9) Code(s): E66.9 - OBESITY, UNSPECIFIED (5) Dehydration Code(s): E86.0 - DEHYDRATION plan continue abx await for surgery rest as per the team
[2019-01-28 09:38] LABS: ALBUMIN 2.7 g/dl (3.4-5.0); BILIRUBIN,DIRECT 0.7 mg/dL (0.0-0.2); BILIRUBIN,TOTAL 1.5 mg/dL (0.2-1); BLOOD UREA NITROGEN 9.7 mg/dL (7-18); CALCIUM 8.9 mg/dL (8.5-10.1); CREATININE 0.7 mg/dL (0.55-1.3); POTASSIUM 3.8 mmol/L (3.5-5.1); TOT PROT 5.9 g/dl (6.4-8.2)
--- NOTE | 2019-01-28 10:21 | PN ---
Physical Exam: SUBJECTIVE: Patient seen and examined at bed side , very upset because surgery was delayed , complain of duffuse abdominal tenderness and bloating. denies any fever, chills. OBJECTIVE: Vital Signs Period Temp Pulse Resp BP Sys/Peters Pulse Ox Last 24 Hr 97.9 F-99.4 F 85-99 16-20 139-171/85-107 96 GENERAL: AAOx3 in NAD HEAD: NC/AT EYES: EOMI, Conjunctiva clear, sclera anicteric ENT: moist mucous membrane NECK: Supple, no JVD LUNGS: CTA B/L, no crackles no wheezing no accessory muscle use. HEART: RRR, NSR, normal s1, s2, murmur no M/R/G ABDOMEN: obese , RUQ pain , diffuse tenderness , Narvaez positive. LOWER EXTREMITIES: no edema, +2DP pulse, NEUROLOGICAL: No focal deficit. Normal speech. gait not observed. PSYCHIATRIC: Cooperative. Good eye contact. Appropriate mood and affect. SKIN: Warm, dry, Laboratory Results - last 24 hr 01/27/19 01/27/19 01/27/19 11:41 17:27 20:56 WBC RBC Hgb Hct MCV MCH MCHC RDW Plt Count MPV Absolute Neuts (auto) Neutrophils % Lymphocytes % Monocytes % Eosinophils % Basophils % Nucleated RBC % Sodium Potassium Chloride Carbon Dioxide Anion Gap BUN Creatinine Est GFR (CKD-EPI)AfAm Est GFR (CKD-EPI)NonAf POC Glucometer 120 104 94 Random Glucose Calcium Total Bilirubin Direct Bilirubin AST ALT Alkaline Phosphatase Total Protein Albumin 01/28/19 01/28/19 01/28/19 05:51 07:51 07:51 WBC 16.7 H RBC 4.67 Hgb 16.5 Hct 47.1 MCV 100.8 H MCH 35.3 H MCHC 35.0 RDW 13.4 Plt Count 190 MPV 9.0 Absolute Neuts (auto) 15.4 H Neutrophils % 91.7 H Lymphocytes % 3.4 L D Monocytes % 4.1 Eosinophils % 0.0 D Basophils % 0.8 Nucleated RBC % 0 Sodium 137 Potassium 3.8 Chloride 104 Carbon Dioxide 23 Anion Gap 11 BUN 9.7 Creatinine 0.7 Est GFR (CKD-EPI)AfAm 120.56 Est GFR (CKD-EPI)NonAf 104.02 POC Glucometer 113 Random Glucose 92 Calcium 8.9 Total Bilirubin 1.5 H Direct Bilirubin 0.7 H AST 19 ALT 19 Alkaline Phosphatase 75 Total Protein 5.9 L Albumin 2.7 L Active Medications Generic Name Dose Route Start Last Admin Trade Name Shana PRN Reason Stop Dose Admin Acetaminophen 1,000 mg 01/28/19 08:45 01/28/19 09:19 Ofirmev Injection - IVPB 1,000 mg Q8H PRN Administration PAIN Heparin Sodium (Porcine) 5,000 unit 01/25/19 18:00 01/28/19 09:53 Heparin - SQ 5,000 unit Q8H-IV LONI Administration Hydralazine HCl 10 mg 01/25/19 18:25 01/28/19 04:38 Apresoline Injection - IVPUSH 10 mg Q6H PRN Administration HYPERTENSION Lactated Ringer's 1,000 ml in 1,000 mls @ 125 mls/hr 01/25/19 17:15 01/28/19 01:27 Lactated Ringers Solution IV 125 mls/hr ASDIR LONI Administration Piperacillin Sod/Tazobactam 50 mls @ 100 mls/hr 01/26/19 13:00 01/28/19 09:20 Sod 3.375 gm/ Dextrose IVPB 100 mls/hr Q8H-IV LONI Administration Protocol Morphine Sulfate 4 mg 01/25/19 17:08 01/28/19 01:27 Morphine Sulfate IVPUSH 4 mg Q4H PRN Administration PAIN LEVEL 7 - 10 Nicotine 21 mg 01/25/19 20:30 01/28/19 09:20 Nicoderm Patch - TD 21 mg DAILY LONI Administration Ondansetron HCl 4 mg 01/25/19 17:08 Zofran Injection IVPUSH Q6H PRN NAUSEA CBC, BMP 01/28/19 07:51 01/28/19 07:51 ASSESSMENT/PLAN: 58 year old obese male with h.o HTN preseneted with recurrent RUQ pain was found to have acute cholecystitis admitted for LAb cholecystectomy. # Biliary Cholic # Cholilithisis with acute cholecystitis # Uncontrolled HTN # Obesity # Nicotin dependence # worsening Leuckocytosis r.o sepsis # R.O choledocholithiasis Plan: * US reviewed with gall bladder wall thickening , no CBD dilation * Abx per ID started on Zosyn, cont * NPO possible surgery today * pain control with morphine * Lab choley by Shari pending GI evaluation to R.O CBD stones * IV fluids RL @ 125 CC/hr per surgery * Type and screen , * PT, PTT INR , cbc , cmp * moderate risk for moderate risk surgery * Incentive spirometry * monitor lab * Hydralizine PRN for HTN while NPO * DVTS proph * Zofran for nausea * Monitor in M/S * Nicotine patch * GI consulted for possible CBD stone , can not do MRCP due to back surgery with metal implant , suggested Intraoperation cholangiogram by GI. * wbc trending up and Total and direct Bili as well Visit type - Emergency Visit Emergency Visit: Yes ED Registration Date: 01/25/19 Care time: The patient presented to the Emergency Department on the above date and was hospitalized for further evaluation of their emergent condition. - New Patient This patient is new to me today: No - Critical Care Critical Care patient: No ATTENDING PHYSICIAN STATEMENT I saw and evaluated the patient. I reviewed the resident's note and discussed the case with the resident. I agree with the resident's findings and plan as documented. SUBJECTIVE: OBJECTIVE: ASSESSMENT AND PLAN:
[2019-01-28] MEDS ORDERED: fentaNYL CITRATE 250 MCG/5 ML VIAL ONE ×3 (10:29→12:42)
[2019-01-28] MEDS ORDERED: PROPOFOL 20 ML ONE ×2 (10:30→12:44)
[2019-01-28] MEDS ORDERED: ROCURONIUM BROMIDE 50 MG/5 ML SYRINGE ONE ×2 (10:30→11:32)
[2019-01-28] MEDS ORDERED: MIDAZOLAM HCL 2 MG/2 ML SINGLE DOSE VIAL ONE (10:30)
[2019-01-28] MEDS ORDERED: HYDROmorphone HCl 2 MG/ML VIAL ONE (11:27)
[2019-01-28] MEDS ORDERED: CEFOXITIN SODIUM 1 GM IVPB ONE ×2 (11:37→11:39)
[2019-01-28] MEDS ORDERED: cefOXitin SODIUM 1 GM VIAL (RESTRICTED TO ID) IVPB ONE (11:40)
[2019-01-28] MEDS ORDERED: NEOSTIGMINE METHYLSULFATE 0.5 MG/ML - 10 ML MDV ONE (11:53)
[2019-01-28] MEDS ORDERED: BUPIVACAINE HCL/PF 0.5% (5 MG/ML) 30 ML VIAL IJ ONE ×2 (11:57→12:41)
[2019-01-28] MEDS ORDERED: GLYCOPYRROLATE 0.2 MG/1 ML VIAL ONE (12:40)
[2019-01-28] MEDS ORDERED: PROMETHAZINE HCL 25 MG/1 ML VIAL IVPUSH PRN (13:13)
[2019-01-28] MEDS ORDERED: ONDANSETRON 4 MG/2 ML VIAL IVPUSH PRN ×2 (13:13→13:30)
[2019-01-28] MEDS ORDERED: LACTATED RINGERS SOLUTION 1,000 ML IV SCH ×2 (13:15→13:30)
--- NOTE | 2019-01-28 13:21 | OP ---
Operative Note - Note: Operative Date: 01/28/19 Pre-Operative Diagnosis: acute cholecytitis Operation: subtotal laparoscopic cholecystetcomy Findings: patch transmural gangrene of gallbladder wall. Bile spillage in the upper abdomen. Fulgurated the infundibular cup and cleared all stone. Post-Operative Diagnosis: Other ([place] Cholecystitis) Surgeon: Kiel Mccarthy Anesthesiologist/CONSUMER CREDIT COUNSELOR: Manoj Fofana Anesthesia: General, Local (0.5% marcaine 20ml) Specimens Removed: portion of gallbladder Estimated Blood Loss (mls): 100 Drains & Tubes with [facility] 10 flat to bulb Fluid Volume Replaced (mls): 1,500 (crystalloid) Operative Report Dictated: Yes
--- NOTE | 2019-01-28 13:26 | PN ---
Teaching Attending Note Name of Resident: Jabari Brambila ATTENDING PHYSICIAN STATEMENT I saw and evaluated the patient. I reviewed the resident's note and discussed the case with the resident. I agree with the resident's findings and plan as documented. SUBJECTIVE: Mr Wilkerson says he is feeling much better s/p surgery. No cp, sob , n/v. OBJECTIVE: Last Vital Signs Temp Pulse Resp BP Pulse Ox 37.3 C 71 18 128/75 97 01/28/19 12:56 01/28/19 17:10 01/28/19 17:10 01/28/19 17:10 01/28/19 17:10 Gen: nad Pulm: ctab w/o w/r/r CV: rrr w/o m/r/g Abd: hypoactive bs, TTP Ext: no c/c/e CBC, BMP 01/28/19 07:51 01/28/19 07:51 ASSESSMENT AND PLAN: (1) Cholelithiasis and acute cholecystitis without obstruction Assessment/Plan: -s/p resection -gallbladder was gangrenous -continue zosyn per ID -monitor in ICU Code(s): K80.00 - CALCULUS OF GALLBLADDER W ACUTE CHOLECYST W/O OBSTRUCTION (2) HTN (hypertension) Assessment/Plan: -restart lisinopril and HCTZ when taking po -slightly elevated but not urgent -prn IV hydralazine Code(s): I10 - ESSENTIAL (PRIMARY) HYPERTENSION Problem List - Problems (1) Cholelithiasis and acute cholecystitis without obstruction Code(s): K80.00 - CALCULUS OF GALLBLADDER W ACUTE CHOLECYST W/O OBSTRUCTION (2) HTN (hypertension) Code(s): I10 - ESSENTIAL (PRIMARY) HYPERTENSION
[2019-01-28] MEDS ORDERED: LACTATED RINGERS SOLUTION 1,000 ML/1,000 ML INFUS.BAG IV SCH (13:30)
[2019-01-28] MEDS ORDERED: morphine SULFATE 4 MG/ML VIAL IVPUSH PRN (13:30)
[2019-01-28] MEDS ORDERED: hydrALAZINE HCL 20 MG/ML VIAL IVPUSH PRN (13:30)
--- NOTE | 2019-01-28 15:27 | CONSULT ---
Consultation: REQUESTING PROVIDER: Dr. Mccarthy CONSULT REQUEST: We have been asked to medically evaluate this patient for s/p cholecystectomy HISTORY OF PRESENT ILLNESS: 58 year old male with a history of hypertension, obesity, smoking (70pack-years) , possible sleep apnea initially presented to the ED for abdominal pain that began on Thursday night around 3am. He reports that it woke him up from his sleep and has been progressively worse in his epigastric region and right upper quadrant. States that he first felt it after he ate 2 rounds of pork chops with mushrooms. States that he has never felt pain like this in the past, and reports associated nausea and vomiting non-bilious emesis. In the hospital, he had a chest/abdomen CTA which showed cholelithiasis, normal CBD, and an US abdomen revealed slightly distended gallbladder wall with cholelithiasis. Patient was taken to the OR today for laparoscopic cholecystectomy. Per surgery , intraoperatively it was found that patient transmural gangrene of gallbladder wall with some bile spillage. Patient was examined in the PACU. Currently he is awake, alert, and in no acute distress. Patient is comfortable and does not currently complain of any pain. Denies nausea, vomiting, chest pain, shortness of breath, fevers or chills. States that he feels much better than when he went in for the surgery. Allergies: none PSH: lap erlinda (01/28/19), lower back surgery in 2006 Smokin ppd for many years (70 pack years) Alcohol: social Drug use: none Family hx: hypertension and DM in mother, no hx of cancer or heart disease in mother or father, no history of strokes or bleeding disorders in family REVIEW OF SYSTEMS: CONSTITUTIONAL: Absent: fever, chills, diaphoresis, generalized weakness, malaise, loss of appetite, weight change HEENT: Absent: rhinorrhea, nasal congestion, throat pain, throat swelling, difficulty swallowing, mouth swelling, ear pain, eye pain, visual changes CARDIOVASCULAR: Absent: chest pain, syncope, palpitations, irregular heart rate, lightheadedness , peripheral edema RESPIRATORY: Absent: cough, shortness of breath, dyspnea with exertion, orthopnea, wheezing, stridor, hemoptysis GASTROINTESTINAL: Absent: abdominal pain, abdominal distension, nausea, vomiting, diarrhea, constipation, melena, hematochezia GENITOURINARY: Absent: dysuria, frequency, urgency, hesitancy, hematuria, flank pain, genital pain MUSCULOSKELETAL: Absent: myalgia, arthralgia, joint swelling, back pain, neck pain SKIN: Absent: rash, itching, pallor HEMATOLOGIC/IMMUNOLOGIC: Absent: easy bleeding, easy bruising, lymphadenopathy, frequent infections ENDOCRINE: Absent: unexplained weight gain, unexplained weight loss, heat intolerance, cold intolerance NEUROLOGIC: Absent: headache, focal weakness or paresthesias, dizziness, unsteady gait, seizure, mental status changes, bladder or bowel incontinence PSYCHIATRIC: Absent: anxiety, depression, suicidal or homicidal ideation, hallucinations. PHYSICAL EXAMINATION Vital Signs - 24 hr 01/27/19 01/27/19 01/27/19 17:22 18:15 21:00 Temperature 99.4 F 98.8 F Pulse Rate 90 88 Respiratory 20 20 20 Rate Blood Pressure 156/103 H 147/87 O2 Sat by Pulse 96 Oximetry (%) 01/27/19 01/28/19 01/28/19 22:00 01:34 05:00 Temperature 98.7 F 98 F Pulse Rate 86 92 H 94 H Respiratory 16 18 18 Rate Blood Pressure 157/99 142/88 171/107 H O2 Sat by Pulse Oximetry (%) 01/28/19 01/28/19 01/28/19 05:34 09:00 12:56 Temperature 97.9 F 99.1 F Pulse Rate 99 H 86 Respiratory 18 18 16 Rate Blood Pressure 160/98 108/67 O2 Sat by Pulse 95 95 Oximetry (%) 01/28/19 01/28/19 01/28/19 13:10 13:25 13:40 Temperature Pulse Rate 83 83 83 Respiratory 18 18 18 Rate Blood Pressure 106/66 113/71 112/71 O2 Sat by Pulse 95 95 95 Oximetry (%) 01/28/19 01/28/19 01/28/19 13:55 14:10 14:25 Temperature Pulse Rate 81 81 77 Respiratory 18 18 18 Rate Blood Pressure 110/73 13/76 L 111/77 O2 Sat by Pulse 95 95 95 Oximetry (%) 01/28/19 01/28/19 14:40 14:55 Temperature Pulse Rate 84 83 Respiratory 18 18 Rate Blood Pressure 134/80 122/82 O2 Sat by Pulse 95 95 Oximetry (%) GENERAL: Awake, alert, and fully oriented, in no acute distress. HEAD: Normal with no signs of trauma. EYES: Pupils equal, round and reactive to light, extraocular movements intact, sclera anicteric, conjunctiva clear. No lid lag. EARS, NOSE, THROAT: Ears normal, nares patent, oropharynx clear without exudates. Moist mucous membranes. NECK: Normal range of motion, supple without lymphadenopathy, JVD, or masses. LUNGS: Breath sounds equal, clear to auscultation bilaterally. No wheezes, and no crackles. No accessory muscle use. HEART: Regular rate and rhythm, normal S1 and S2 without murmur, rub or gallop. ABDOMEN: Soft, nontender, not distended, normoactive bowel sounds, no guarding, no rebound, no masses. No hepatomegaly or splenomegaly. MUSCULOSKELETAL: Normal range of motion at all joints. No bony deformities or tenderness. No CVA tenderness. UPPER EXTREMITIES: 2+ pulses, warm, well-perfused. No cyanosis. No clubbing. Cap refill <2 seconds. No peripheral edema. LOWER EXTREMITIES: 2+ pulses, warm, well-perfused. No calf tenderness. No peripheral edema. NEUROLOGICAL: Cranial nerves II-XII intact. Normal speech. Normal gait. PSYCHIATRIC: Cooperative. Good eye contact. Appropriate mood and affect. SKIN: Warm, dry, normal turgor, no rashes or lesions noted. Laboratory Results - last 24 hr 01/27/19 01/27/19 01/28/19 17:27 20:56 05:51 WBC RBC Hgb Hct MCV MCH MCHC RDW Plt Count MPV Absolute Neuts (auto) Neutrophils % Lymphocytes % Monocytes % Eosinophils % Basophils % Nucleated RBC % Sodium Potassium Chloride Carbon Dioxide Anion Gap BUN Creatinine Est GFR (CKD-EPI)AfAm Est GFR (CKD-EPI)NonAf POC Glucometer 104 94 113 Random Glucose Calcium Total Bilirubin Direct Bilirubin AST ALT Alkaline Phosphatase Total Protein Albumin 01/28/19 01/28/19 07:51 07:51 WBC 16.7 H RBC 4.67 Hgb 16.5 Hct 47.1 MCV 100.8 H MCH 35.3 H MCHC 35.0 RDW 13.4 Plt Count 190 MPV 9.0 Absolute Neuts (auto) 15.4 H Neutrophils % 91.7 H Lymphocytes % 3.4 L D Monocytes % 4.1 Eosinophils % 0.0 D Basophils % 0.8 Nucleated RBC % 0 Sodium 137 Potassium 3.8 Chloride 104 Carbon Dioxide 23 Anion Gap 11 BUN 9.7 Creatinine 0.7 Est GFR (CKD-EPI)AfAm 120.56 Est GFR (CKD-EPI)NonAf 104.02 POC Glucometer Random Glucose 92 Calcium 8.9 Total Bilirubin 1.5 H Direct Bilirubin 0.7 H AST 19 ALT 19 Alkaline Phosphatase 75 Total Protein 5.9 L Albumin 2.7 L Active Medications Generic Name Dose Route Start Last Admin Trade Name Freq PRN Reason Stop Dose Admin Acetaminophen 1,000 mg 01/28/19 13:30 Ofirmev Injection - IVPB Q8H PRN PAIN Chlorhexidine Gluconate 1 applic 01/28/19 22:00 Hibiclens For Decolonization - TP HS [facility] Heparin Sodium (Porcine) 5,000 unit 01/28/19 22:00 Heparin - SQ TID LONI Hydralazine HCl 10 mg 01/28/19 13:30 Apresoline Injection - IVPUSH Q6H PRN HYPERTENSION Lactated Ringer's 1,000 mls @ 125 mls/hr 01/28/19 13:30 Lactated Ringers Solution IV ASDIR LONI Piperacillin Sod/Tazobactam 50 mls @ 100 mls/hr 01/28/19 18:00 Sod 3.375 gm/ Dextrose IVPB Q8H-IV [facility] Protocol Morphine Sulfate 4 mg 01/28/19 13:30 Morphine Sulfate IVPUSH Q4H PRN PAIN LEVEL 7 - 10 Mupirocin 1 applic 01/28/19 22:00 Bactroban Ointment (For Decolonization) - NS 02/02/19 21:59 BID [facility] Nicotine 21 mg 01/29/19 10:00 Nicoderm Patch - TD DAILY [facility] Ondansetron HCl 4 mg 01/28/19 13:30 Zofran Injection IVPUSH Q6H PRN NAUSEA Current Medications Acetaminophen (Ofirmev Injection -) 1,000 mg IVPB Q8H PRN PRN Reason: PAIN Chlorhexidine Gluconate (Hibiclens For Decolonization -) 1 applic TP HS [facility] Heparin Sodium (Porcine) (Heparin -) 5,000 unit SQ TID [facility] Hydralazine HCl (Apresoline Injection -) 10 mg IVPUSH Q6H PRN PRN Reason: HYPERTENSION Lactated Ringer's (Lactated Ringers Solution) 1,000 mls @ 125 mls/hr IV ASDIR LONI Piperacillin Sod/Tazobactam (Sod 3.375 gm/ Dextrose) 50 mls @ 100 mls/hr IVPB Q8H-IV [facility]; Protocol Morphine Sulfate (Morphine Sulfate) 4 mg IVPUSH Q4H PRN PRN Reason: PAIN LEVEL 7 - 10 Mupirocin (Bactroban Ointment (For Decolonization) -) 1 applic NS BID [facility] Stop: 02/02/19 21:59 Nicotine (Nicoderm Patch -) 21 mg TD DAILY [facility] Ondansetron HCl (Zofran Injection) 4 mg IVPUSH Q6H PRN PRN Reason: NAUSEA CBC, BMP 01/28/19 07:51 01/28/19 07:51 ASSESSMENT/PLAN: 58 year old male with a history of hypertension, obesity, smoking (70pack-years) , possible sleep apnea initially presented to the ED for abdominal pain, admitted for evaluation and treatment of acute calculous cholecystitis s/p laparoscopic cholecystectomy #Acute Calculous, Gangrenous Cholecystitis #Hypertension Neurological -no acute neurologic deficits Cardiovascular -history of hypertension, currently on hydralazine 10mg q6h PRN hypertension -monitor BPs postoperatively in the setting of gangrenous cholecystitis Pulmonary -no acute deficits -on nasal cannula -monitor O2 sat while in ICU Gastrointestinal -acute gangrenous cholecystitis: s/p laparoscopic cholecystectomy w/ Dr. Mccarthy -CT/US reviewed -doing well post-operatively, no flatus at present time -monitor vital signs -encourage incentive spirometry -continue zosyn -GI/surgery recommendations appreciated -keep NPO for now FEN -NS @ 100cc/hr 1 bag -monitor lytes -NPO for now Prophylaxis -SCDs Disposition -ICU, anticipate downgrade in 24 hours Visit type - Emergency Visit Emergency Visit: No - New Patient This patient is new to me today: Yes Date on this admission: 01/28/19 - Critical Care Critical Care patient: Yes Total Critical Care Time (in minutes): 35 Critical Care Statement: The care of this patient involved high complexity decision making to prevent further life threatening deterioration of the patient 's condition and/or to evaluate & treat vital organ system(s) failure or risk of failure. ATTENDING PHYSICIAN STATEMENT I saw and evaluated the patient. I reviewed the resident's note and discussed the case with the resident. I agree with the resident's findings and plan as documented. SUBJECTIVE: OBJECTIVE: ASSESSMENT AND PLAN:
[2019-01-28 15:31] LABS: ANISOCYTOSIS 1+; MACROCYTOSIS 0; PLATELET ESTIMATE NORMAL; TEAR DROP CELLS 1+
[2019-01-28] MEDS ORDERED: PNEUMOC 13-VAL CONJ-DIP CRM/PF 0.5 ML DISP.SYRIN IM ONE (18:12)
[2019-01-28] MEDS ORDERED: PNEUMOCOCCAL 23 VACCINE 0.5 ML VIAL IM ONE (18:30)
[2019-01-28] MEDS: MUPIROCIN 2% TOPICAL OINTMENT FOR DECOLONIZATION NS SCH (21:32)
[2019-01-28] MEDS: CHLORHEXIDINE GLUCONATE 4% CLEANSER FOR DECOLONIZATION TP SCH (21:33)
[2019-01-28] MEDS: ACETAMINOPHEN 1000 MG/100 ML VIAL (NON FORMULARY) IVPB PRN (21:34)
[2019-01-29] MEDS: PIPERACILLIN/TAZOB 3.375 GM 3.375 GM in DEXTROSE 5%-WATER - 50 ML IVPB SCH ×3 (02:00→18:02)
[2019-01-29] MEDS ORDERED: DEXTROSE 5%-WATER - 50 ML IVPB ONE ×3 (02:49→17:56)
[2019-01-29] MEDS ORDERED: PIPERACILLIN/TAZOBACTAM 3.375 GM VIAL IVPB ONE ×3 (02:49→17:56)
[2019-01-29] MEDS: HEPARIN NA (PORCINE) 5,000 UNITS/ML 1ML VIAL SQ SCH ×3 (06:32→21:35)
[2019-01-29 06:34] LABS: ALBUMIN 2.2 g/dl (3.4-5.0); BILIRUBIN,TOTAL 0.6 mg/dL (0.2-1); BLOOD UREA NITROGEN 14.4 mg/dL (7-18); CREATININE 0.7 mg/dL (0.55-1.3); MAGNESIUM 2.1 mg/dL (1.8-2.4); POTASSIUM 3.8 mmol/L (3.5-5.1); TOT PROT 5.2 g/dl (6.4-8.2)
[2019-01-29] MEDS: ACETAMINOPHEN 1000 MG/100 ML VIAL (NON FORMULARY) IVPB PRN ×3 (06:53→21:36)
[2019-01-29 07:23] LABS: BASO % 0.1 % (0-2.0); HEMATOCRIT 41.4 % (35.4-49); HEMOGLOBIN 14.6 GM/dL (11.7-16.9); LYMPH % 5.2 % (8-40); MCH 35.4 pg (25.7-33.7); MCHC 35.3 g/dl (32.0-35.9); MEAN CELL VOLUME 100.3 fl (80-96); MEAN PLT VOLUME 8.9 fl (7.5-11.1); MONO % 3.8 % (3.8-10.2); NEUT % 90.9 % (42.8-82.8); PLATELET COUNT 200 K/MM3 (134-434); RBC 4.12 M/mm3 (4.00-5.60); WHITE BLOOD COUNT 11.8 K/mm3 (4.0-10.0)
--- NOTE | 2019-01-29 08:42 | PN ---
Progress Note (short form) - Note Progress Note: Anesthesia /Pain Pt seen and examined S:Alert and awake comfortable O: Vital Signs Temperature 98.2 F 01/29/19 04:00 Pulse Rate 61 01/29/19 06:00 Respiratory Rate 16 01/29/19 06:00 Blood Pressure 139/84 01/29/19 06:00 O2 Sat by Pulse Oximetry (%) 96 01/28/19 20:08 CBC, BMP 01/29/19 05:45 01/29/19 05:45 A/P: Current Active Problems Abdominal pain in male (Acute) Acute cholecystitis (Acute) Biliary colic symptom (Acute) Borderline hyperglycemia (Acute) Cholelithiasis and acute cholecystitis without obstruction (Acute) Dehydration (Acute) HTN (hypertension) (Acute) Obesity (BMI 30.0-34.9) (Acute) s/p lap erlinda Doing well post op Continue current care Mj Cueva MD
[2019-01-29] MEDS: MUPIROCIN 2% TOPICAL OINTMENT FOR DECOLONIZATION NS SCH ×2 (09:14→21:34)
[2019-01-29] MEDS: NICOTINE 21 MG/24 HOURS TOPICAL PATCH TD SCH (09:15)
--- NOTE | 2019-01-29 09:33 | PN ---
Progress Note (short form) - Note Progress Note: Pulm/CCM Pt seen and examined in ICU Subjective 24Hr: no acute events, pain controlled Vital Signs Temp 98.2 F 01/29/19 04:00 Pulse 75 01/29/19 08:00 Resp 16 01/29/19 08:00 BP 142/87 01/29/19 08:00 Pulse Ox 96 01/28/19 20:08 Intake & Output 01/28/19 01/28/19 01/29/19 11:59 23:59 11:59 Intake Total 2925 1775 925 Output Total 600 555 325 Balance 2325 1220 600 Intake: IV 2875 1525 875 LACTATED RINGERS SOLUTION 1375 1,000 ml In 1,000 ml @ 125 mls/hr IV ASDIR LONI Rx#:[id number] Lactated Ringers Solution 875 875 1,000 ml @ 125 mls/hr IV ASDIR LONI Rx#: [id number] IVPB 50 250 50 Output: Drainage 55 25 Right Lower Abdomen 25 Urine 600 400 300 Void 600 400 300 Estimated Blood Loss 100 Other: Voiding Method Toilet Toilet Bowel Movement No No No CBC, BMP 01/29/19 05:45 01/29/19 05:45 Hepatic Panel Total Bilirubin 0.6 mg/dL (0.2-1) 01/29/19 05:45 Direct Bilirubin 0.4 mg/dL (0.0-0.2) H 01/29/19 05:45 AST 23 U/L (15-37) 01/29/19 05:45 ALT 22 U/L (13-61) 01/29/19 05:45 Alkaline Phosphatase 67 U/L (45-117) 01/29/19 05:45 Albumin 2.2 g/dl (3.4-5.0) L 01/29/19 05:45 PE HEENT: PERRL, NCAT PULM: clear anterior CV; rrr, BP controlled ABD: soft, + BS EXT: no edema ASSESSMENT/PLAN: 58 year old male with a history of hypertension, obesity, smoking (70pack-years) , possible sleep apnea initially presented to the ED for abdominal pain, admitted for evaluation and treatment of acute calculous cholecystitis s/p laparoscopic cholecystectomy #Acute Calculous, Gangrenous Cholecystitis #Hypertension Neurological -no acute neurologic deficits Cardiovascular -history of hypertension, currently on hydralazine 10mg q6h PRN hypertension -restart home meds as tolerated Pulmonary -no acute deficits -on nasal cannula -monitor O2 sat while in ICU Gastrointestinal -acute gangrenous cholecystitis: s/p laparoscopic cholecystectomy w/ Dr. Mccarthy -CT/US reviewed -monitor vital signs -encourage incentive spirometry -continue zosyn -GI/surgery recommendations appreciated -advance diet today FEN -NS @ 100cc/hr 1 bag -monitor lytes Prophylaxis -SCDs Disposition -ks for med surg
--- NOTE | 2019-01-29 10:06 | PN ---
Progress Note, Physician Chief Complaint: Mr Wilkerson is having some pain in his RUQ with movement but says he is feeling much better. no cp, sob, n/v. - Current Medication List Current Medications: Active Medications Acetaminophen (Ofirmev Injection -) 1,000 mg IVPB Q8H PRN PRN Reason: PAIN Last Admin: 01/29/19 06:53 Dose: 1,000 mg Chlorhexidine Gluconate (Hibiclens For Decolonization -) 1 applic TP HS [facility] Last Admin: 01/28/19 21:33 Dose: 1 applic Heparin Sodium (Porcine) (Heparin -) 5,000 unit SQ TID LONI Last Admin: 01/29/19 06:32 Dose: 5,000 unit Hydralazine HCl (Apresoline Injection -) 10 mg IVPUSH Q6H PRN PRN Reason: HYPERTENSION Lactated Ringer's (Lactated Ringers Solution) 1,000 mls @ 125 mls/hr IV ASDIR [facility] Last Admin: 01/28/19 18:24 Dose: Not Given Piperacillin Sod/Tazobactam (Sod 3.375 gm/ Dextrose) 50 mls @ 100 mls/hr IVPB Q8H-IV [facility]; Protocol Last Admin: 01/29/19 09:15 Dose: 100 mls/hr Morphine Sulfate (Morphine Sulfate) 4 mg IVPUSH Q4H PRN PRN Reason: PAIN LEVEL 7 - 10 Mupirocin (Bactroban Ointment (For Decolonization) -) 1 applic NS BID [facility] Stop: 02/02/19 21:59 Last Admin: 01/29/19 09:14 Dose: 1 applic Nicotine (Nicoderm Patch -) 21 mg TD DAILY [facility] Last Admin: 01/29/19 09:15 Dose: 21 mg Ondansetron HCl (Zofran Injection) 4 mg IVPUSH Q6H PRN PRN Reason: NAUSEA - Objective Vital Signs: Vital Signs Temperature 36.8 C 01/29/19 04:00 Pulse Rate 75 01/29/19 08:00 Respiratory Rate 16 01/29/19 08:00 Blood Pressure 142/87 01/29/19 08:00 O2 Sat by Pulse Oximetry (%) 96 01/28/19 20:08 Constitutional: Yes: Well Nourished, No Distress, Calm Cardiovascular: Yes: Regular Rate and Rhythm. No: Gallop, Murmur, Rub Respiratory: Yes: Regular, CTA Bilaterally. No: Rales, Rhonchi, Wheezes Gastrointestinal: Yes: Normal Bowel Sounds, Soft, Tenderness. No: Distention Extremities: Yes: WNL Edema: No Labs: CBC, BMP 01/29/19 05:45 01/29/19 05:45 INR, PTT INR 0.99 (0.83-1.09) 01/25/19 06:15 Problem List - Problems (1) Cholelithiasis and acute cholecystitis without obstruction Code(s): K80.00 - CALCULUS OF GALLBLADDER W ACUTE CHOLECYST W/O OBSTRUCTION (2) HTN (hypertension) Code(s): I10 - ESSENTIAL (PRIMARY) HYPERTENSION Assessment/Plan (1) Cholelithiasis and acute cholecystitis without obstruction Assessment/Plan: -s/p resection -gallbladder was gangrenous -much improved today -leukocytosis also improving -antibiotics per ID Code(s): K80.00 - CALCULUS OF GALLBLADDER W ACUTE CHOLECYST W/O OBSTRUCTION (2) HTN (hypertension) Assessment/Plan: -continue prn hydralazine -when taking po, can restart lisinopril -monitor and can add back HCTZ if needed -can resume home meds on discharge Code(s): I10 - ESSENTIAL (PRIMARY) HYPERTENSION
--- NOTE | 2019-01-29 13:25 | PN ---
Progress Note, Physician History of Present Illness: operative note noted findings noted post op txed to icu starting to feel better now - Current Medication List Current Medications: Active Medications Acetaminophen (Ofirmev Injection -) 1,000 mg IVPB Q8H PRN PRN Reason: PAIN Last Admin: 01/29/19 06:53 Dose: 1,000 mg Chlorhexidine Gluconate (Hibiclens For Decolonization -) 1 applic TP HS [facility] Last Admin: 01/28/19 21:33 Dose: 1 applic Heparin Sodium (Porcine) (Heparin -) 5,000 unit SQ TID [facility] Last Admin: 01/29/19 06:32 Dose: 5,000 unit Hydralazine HCl (Apresoline Injection -) 10 mg IVPUSH Q6H PRN PRN Reason: HYPERTENSION Piperacillin Sod/Tazobactam (Sod 3.375 gm/ Dextrose) 50 mls @ 100 mls/hr IVPB Q8H-IV [facility]; Protocol Last Admin: 01/29/19 09:15 Dose: 100 mls/hr Morphine Sulfate (Morphine Sulfate) 4 mg IVPUSH Q4H PRN PRN Reason: PAIN LEVEL 7 - 10 Mupirocin (Bactroban Ointment (For Decolonization) -) 1 applic NS BID [facility] Stop: 02/02/19 21:59 Last Admin: 01/29/19 09:14 Dose: 1 applic Nicotine (Nicoderm Patch -) 21 mg TD DAILY [facility] Last Admin: 01/29/19 09:15 Dose: 21 mg Ondansetron HCl (Zofran Injection) 4 mg IVPUSH Q6H PRN PRN Reason: NAUSEA - Objective Vital Signs: Vital Signs Temperature 98.2 F 01/29/19 04:00 Pulse Rate 84 01/29/19 12:00 Respiratory Rate 18 01/29/19 12:00 Blood Pressure 134/83 01/29/19 12:00 O2 Sat by Pulse Oximetry (%) 96 01/29/19 09:00 Constitutional: Yes: Calm, Mild Distress Cardiovascular: Yes: Regular Rate and Rhythm Respiratory: Yes: Regular, CTA Bilaterally Gastrointestinal: Yes: Hypoactive Bowel Sounds, Tenderness Musculoskeletal: Yes: WNL Extremities: Yes: WNL Neurological: Yes: Alert, Oriented Psychiatric: Yes: Alert, Oriented Labs: CBC, BMP 01/29/19 05:45 01/29/19 05:45 INR, PTT INR 0.99 (0.83-1.09) 01/25/19 06:15 Assessment/Plan Problem List - Problems (1) Cholelithiasis and acute cholecystitis without obstruction Code(s): K80.00 - CALCULUS OF GALLBLADDER W ACUTE CHOLECYST W/O OBSTRUCTION (2) Biliary colic symptom Code(s): K80.50 - CALCULUS OF BILE DUCT W/O CHOLANGITIS OR CHOLECYST W/O OBST (3) Abdominal pain in male Code(s): R10.9 - UNSPECIFIED ABDOMINAL PAIN (4) Obesity (BMI 30.0-34.9) Code(s): E66.9 - OBESITY, UNSPECIFIED (5) Dehydration Code(s): E86.0 - DEHYDRATION gangrene of the gall bladder plan ct abx close watch as per icu hydration rest as per surgery cc 40 min
--- NOTE | 2019-01-29 14:47 | PN ---
Progress Note, Physician - Current Medication List Current Medications: Active Medications Acetaminophen (Ofirmev Injection -) 1,000 mg IVPB Q8H PRN PRN Reason: PAIN Last Admin: 01/29/19 13:27 Dose: 1,000 mg Chlorhexidine Gluconate (Hibiclens For Decolonization -) 1 applic TP HS [facility] Last Admin: 01/28/19 21:33 Dose: 1 applic Heparin Sodium (Porcine) (Heparin -) 5,000 unit SQ TID [facility] Last Admin: 01/29/19 13:28 Dose: 5,000 unit Hydralazine HCl (Apresoline Injection -) 10 mg IVPUSH Q6H PRN PRN Reason: HYPERTENSION Piperacillin Sod/Tazobactam (Sod 3.375 gm/ Dextrose) 50 mls @ 100 mls/hr IVPB Q8H-IV [facility]; Protocol Last Admin: 01/29/19 09:15 Dose: 100 mls/hr Morphine Sulfate (Morphine Sulfate) 4 mg IVPUSH Q4H PRN PRN Reason: PAIN LEVEL 7 - 10 Mupirocin (Bactroban Ointment (For Decolonization) -) 1 applic NS BID [facility] Stop: 02/02/19 21:59 Last Admin: 01/29/19 09:14 Dose: 1 applic Nicotine (Nicoderm Patch -) 21 mg TD DAILY [facility] Last Admin: 01/29/19 09:15 Dose: 21 mg Ondansetron HCl (Zofran Injection) 4 mg IVPUSH Q6H PRN PRN Reason: NAUSEA - Objective Vital Signs: Vital Signs Temperature 98.2 F 01/29/19 04:00 Pulse Rate 84 01/29/19 12:00 Respiratory Rate 18 01/29/19 12:00 Blood Pressure 134/83 01/29/19 12:00 O2 Sat by Pulse Oximetry (%) 96 01/29/19 09:00 Constitutional: Yes: Well Nourished, No Distress, Calm Eyes: Yes: Conjunctiva Clear, EOM Intact HENT: Yes: Atraumatic, Normocephalic Neck: Yes: Supple, Trachea Midline Cardiovascular: Yes: Regular Rate and Rhythm, S1, S2 Respiratory: Yes: Regular, CTA Bilaterally Labs: CBC, BMP 01/29/19 05:45 01/29/19 05:45 INR, PTT INR 0.99 (0.83-1.09) 01/25/19 06:15 Problem List - Problems (1) Acute gangrenous cholecystitis Assessment/Plan: 58yo male MMP POD#1 s/p Partial Laparoscopic cholecystectomy for gangrenous cholecystitis Medical followup regarding hyperglycemia Diet as tolerated IV antibiotics to continue will D/C JOHNSON drain wehen less than 30ml/day Code(s): K81.0 - ACUTE CHOLECYSTITIS (2) Abdominal pain in male Code(s): R10.9 - UNSPECIFIED ABDOMINAL PAIN (3) Borderline hyperglycemia Code(s): R73.9 - HYPERGLYCEMIA, UNSPECIFIED (4) HTN (hypertension) Code(s): I10 - ESSENTIAL (PRIMARY) HYPERTENSION (5) Obesity (BMI 30.0-34.9) Code(s): E66.9 - OBESITY, UNSPECIFIED
--- NOTE | 2019-01-29 14:57 | PN ---
Progress Note, Physician Chief Complaint: abdominal pain History of Present Illness: 58yo male PMH obesity, uncontrolled HTN, presented with upper abdominal pain acute in onset last night at 3AM. Pain was focal to the RUQ with radiation to the back. He has had persistent abdominal pain and complains of hunger. l - Current Medication List Current Medications: Active Medications Acetaminophen (Ofirmev Injection -) 1,000 mg IVPB Q8H PRN PRN Reason: PAIN Last Admin: 01/29/19 13:27 Dose: 1,000 mg Chlorhexidine Gluconate (Hibiclens For Decolonization -) 1 applic TP HS [facility] Last Admin: 01/28/19 21:33 Dose: 1 applic Heparin Sodium (Porcine) (Heparin -) 5,000 unit SQ TID [facility] Last Admin: 01/29/19 13:28 Dose: 5,000 unit Hydralazine HCl (Apresoline Injection -) 10 mg IVPUSH Q6H PRN PRN Reason: HYPERTENSION Piperacillin Sod/Tazobactam (Sod 3.375 gm/ Dextrose) 50 mls @ 100 mls/hr IVPB Q8H-IV [facility]; Protocol Last Admin: 01/29/19 09:15 Dose: 100 mls/hr Morphine Sulfate (Morphine Sulfate) 4 mg IVPUSH Q4H PRN PRN Reason: PAIN LEVEL 7 - 10 Mupirocin (Bactroban Ointment (For Decolonization) -) 1 applic NS BID [facility] Stop: 02/02/19 21:59 Last Admin: 01/29/19 09:14 Dose: 1 applic Nicotine (Nicoderm Patch -) 21 mg TD DAILY [facility] Last Admin: 01/29/19 09:15 Dose: 21 mg Ondansetron HCl (Zofran Injection) 4 mg IVPUSH Q6H PRN PRN Reason: NAUSEA - Objective Vital Signs: Vital Signs Temperature 98.2 F 01/29/19 04:00 Pulse Rate 84 01/29/19 12:00 Respiratory Rate 18 01/29/19 12:00 Blood Pressure 134/83 01/29/19 12:00 O2 Sat by Pulse Oximetry (%) 96 01/29/19 09:00 Vital Signs Period Temp Pulse Resp BP Sys/Peters Pulse Ox Last 24 Hr 97.9 F-98.6 F 58-84 15-20 116-155/62-109 95-97 Intake & Output 01/28/19 01/29/19 01/29/19 23:59 07:59 15:59 Intake Total 750 925 Output Total 445 325 Balance 305 600 Intake: IV 650 875 Lactated Ringers Solution 500 875 1,000 ml @ 125 mls/hr IV ASDIR LONI Rx#: [id number] IVPB 100 50 Output: Drainage 45 25 Right Lower Abdomen 25 Urine 400 300 Void 400 300 Other: Voiding Method Toilet Toilet Bowel Movement No No Constitutional: Yes: Well Nourished, No Distress, Calm Eyes: Yes: Conjunctiva Clear, EOM Intact HENT: Yes: Atraumatic, Normocephalic Neck: Yes: Supple, Trachea Midline Cardiovascular: Yes: Regular Rate and Rhythm, S1, S2 Respiratory: Yes: Regular, CTA Bilaterally Gastrointestinal: Yes: Normal Bowel Sounds, Soft, Abdomen, Obese, Tenderness, Other (JOHNSON drain) ...Rectal Exam: Yes: Deferred Genitourinary: No: CVA Tenderness - Left, CVA Tenderness - Right Breast(s): No: Mass, Nipple Inversion, Skin Changes Musculoskeletal: No: Muscle Pain, Muscle Weakness Extremities: No: Cool, Cyanosis Edema: No Peripheral Pulses WNL: Yes Peripheral Pulses: Left Radial: 2+, Right Radial: 2+, Left Doralis Pedis: 2+, Right Dorsalis Pedis: 2+, Left Femoral: 2+, Right Femoral: 2+ Integumentary: No: Incision, Jaundice, Rash Wound/Incision: Yes: Clean/Dry, Well Approximated, Dressing Dry and Intact Neurological: Yes: Alert, Oriented Psychiatric: Yes: Alert, Oriented Labs: CBC, BMP 01/29/19 05:45 01/29/19 05:45 INR, PTT INR 0.99 (0.83-1.09) 01/25/19 06:15 Problem List - Problems (1) Cholelithiasis and acute cholecystitis without obstruction Assessment/Plan: 58yo male with uncontrolled HTN obesity and symptomatic cholelithiasis with now elevated Tbili 1.4-1.6, unable to di MRCP, can do IOC but OR not equiped to do stone retrieval or intervention. POD#1 s/p subtotal laparoscopic cholecystetctomy for a gangrenous cholecystitis Diet as tolerated IVF hydartion IV antibiotics per ID will remove JOHNSON drain when output is less than 30ml per day consider transfer to floor Planned discharge home Thursday. This patient is in guarded condition. Time spent reviewing chart, examining patient, talking with providers and/or family and documentation is 35 minutes. Code(s): K80.00 - CALCULUS OF GALLBLADDER W ACUTE CHOLECYST W/O OBSTRUCTION (2) Biliary colic symptom Code(s): K80.50 - CALCULUS OF BILE DUCT W/O CHOLANGITIS OR CHOLECYST W/O OBST (3) Abdominal pain in male Code(s): R10.9 - UNSPECIFIED ABDOMINAL PAIN (4) Obesity (BMI 30.0-34.9) Code(s): E66.9 - OBESITY, UNSPECIFIED (5) Dehydration Code(s): E86.0 - DEHYDRATION
[2019-01-29 17:02] VITALS: BMI 30.1
[2019-01-29] MEDS: CHLORHEXIDINE GLUCONATE 4% CLEANSER FOR DECOLONIZATION TP SCH (21:35)
[2019-01-30] MEDS ORDERED: PIPERACILLIN/TAZOBACTAM 3.375 GM VIAL IVPB ONE ×3 (01:39→17:20)
[2019-01-30] MEDS ORDERED: DEXTROSE 5%-WATER - 50 ML IVPB ONE ×3 (01:39→17:20)
[2019-01-30] MEDS: PIPERACILLIN/TAZOB 3.375 GM 3.375 GM in DEXTROSE 5%-WATER - 50 ML IVPB SCH ×3 (01:44→17:26)
[2019-01-30] MEDS: HEPARIN NA (PORCINE) 5,000 UNITS/ML 1ML VIAL SQ SCH ×3 (05:25→21:06)
[2019-01-30] MEDS: MUPIROCIN 2% TOPICAL OINTMENT FOR DECOLONIZATION NS SCH ×2 (09:08→21:07)
[2019-01-30] MEDS: NICOTINE 21 MG/24 HOURS TOPICAL PATCH TD SCH (09:08)
--- NOTE | 2019-01-30 11:04 | PN ---
Progress Note, Physician Chief Complaint: Mr Wilkerson says he is feeling better. Still with pain at the surgery site but improved and only felt with movement. No cp, sob, n/v. - Current Medication List Current Medications: Active Medications Acetaminophen (Ofirmev Injection -) 1,000 mg IVPB Q8H PRN PRN Reason: PAIN Last Admin: 01/29/19 21:36 Dose: 1,000 mg Chlorhexidine Gluconate (Hibiclens For Decolonization -) 1 applic TP HS [facility] Last Admin: 01/29/19 21:35 Dose: 1 applic Heparin Sodium (Porcine) (Heparin -) 5,000 unit SQ TID [facility] Last Admin: 01/30/19 05:25 Dose: 5,000 unit Hydralazine HCl (Apresoline Injection -) 10 mg IVPUSH Q6H PRN PRN Reason: HYPERTENSION Piperacillin Sod/Tazobactam (Sod 3.375 gm/ Dextrose) 50 mls @ 100 mls/hr IVPB Q8H-IV [facility]; Protocol Last Admin: 01/30/19 09:07 Dose: 100 mls/hr Morphine Sulfate (Morphine Sulfate) 4 mg IVPUSH Q4H PRN PRN Reason: PAIN LEVEL 7 - 10 Mupirocin (Bactroban Ointment (For Decolonization) -) 1 applic NS BID [facility] Stop: 02/02/19 21:59 Last Admin: 01/30/19 09:08 Dose: 1 applic Nicotine (Nicoderm Patch -) 21 mg TD DAILY [facility] Last Admin: 01/30/19 09:08 Dose: 21 mg Ondansetron HCl (Zofran Injection) 4 mg IVPUSH Q6H PRN PRN Reason: NAUSEA - Objective Vital Signs: Vital Signs Temperature 36.4 C 01/30/19 06:00 Pulse Rate 76 01/30/19 08:00 Respiratory Rate 18 01/30/19 08:00 Blood Pressure 152/104 H 01/30/19 08:00 O2 Sat by Pulse Oximetry (%) 97 01/29/19 21:00 Constitutional: Yes: No Distress, Calm, Obese Cardiovascular: Yes: Regular Rate and Rhythm. No: Gallop, Murmur, Rub Respiratory: Yes: Regular, CTA Bilaterally. No: Rales, Rhonchi, Wheezes Gastrointestinal: Yes: Normal Bowel Sounds, Soft. No: Distention, Tenderness Extremities: Yes: WNL Edema: No Labs: CBC, BMP 01/29/19 05:45 01/29/19 05:45 INR, PTT INR 0.99 (0.83-1.09) 01/25/19 06:15 Problem List - Problems (1) Cholelithiasis and acute cholecystitis without obstruction Code(s): K80.00 - CALCULUS OF GALLBLADDER W ACUTE CHOLECYST W/O OBSTRUCTION (2) HTN (hypertension) Code(s): I10 - ESSENTIAL (PRIMARY) HYPERTENSION Assessment/Plan (1) Cholelithiasis and acute cholecystitis without obstruction Assessment/Plan: -continue antibiotics per ID -drain in place, surgery managing Code(s): K80.00 - CALCULUS OF GALLBLADDER W ACUTE CHOLECYST W/O OBSTRUCTION (2) HTN (hypertension) Assessment/Plan: -tolerating po -restart home lisinopril and HCTZ Code(s): I10 - ESSENTIAL (PRIMARY) HYPERTENSION
[2019-01-30] MEDS ORDERED: PATIENT'S OWN MEDICATION (NON-FORMULARY) (Lisinopril/Hydrochlorothiazide [Lisinopril-Hctz PO SCH (11:15)
[2019-01-30 11:49] LABS: BASO % 0.6 % (0-2.0); EOS % 0.6 % (0-4.5); HEMATOCRIT 46.6 % (35.4-49); HEMOGLOBIN 16.1 GM/dL (11.7-16.9); LYMPH % 15.4 % (8-40); MCH 35.1 pg (25.7-33.7); MCHC 34.5 g/dl (32.0-35.9); MEAN CELL VOLUME 101.8 fl (80-96); MEAN PLT VOLUME 8.3 fl (7.5-11.1); MONO % 7.3 % (3.8-10.2); NEUT % 76.1 % (42.8-82.8); PLATELET COUNT 248 K/MM3 (134-434); RBC 4.57 M/mm3 (4.00-5.60); RDW 13.6 % (11.9-15.9); WHITE BLOOD COUNT 7.5 K/mm3 (4.0-10.0)
[2019-01-30 12:22] LABS: ALBUMIN 2.6 g/dl (3.4-5.0); BILIRUBIN,TOTAL 0.5 mg/dL (0.2-1); BLOOD UREA NITROGEN 17.5 mg/dL (7-18); CALCIUM 8.6 mg/dL (8.5-10.1); CREATININE 0.9 mg/dL (0.55-1.3); MAGNESIUM 2.4 mg/dL (1.8-2.4); PHOSPHOROUS 2.3 mg/dL (2.5-4.9); POTASSIUM 3.9 mmol/L (3.5-5.1); TOT PROT 6.1 g/dl (6.4-8.2)
--- NOTE | 2019-01-30 13:19 | PN ---
Progress Note, Physician History of Present Illness: stable doing well wbc has normalized - Current Medication List Current Medications: Active Medications Acetaminophen (Ofirmev Injection -) 1,000 mg IVPB Q8H PRN PRN Reason: PAIN Last Admin: 01/29/19 21:36 Dose: 1,000 mg Chlorhexidine Gluconate (Hibiclens For Decolonization -) 1 applic TP HS [facility] Last Admin: 01/29/19 21:35 Dose: 1 applic Heparin Sodium (Porcine) (Heparin -) 5,000 unit SQ TID [facility] Last Admin: 01/30/19 05:25 Dose: 5,000 unit Hydralazine HCl (Apresoline Injection -) 10 mg IVPUSH Q6H PRN PRN Reason: HYPERTENSION Hydrochlorothiazide (Hctz -) 12.5 mg PO DAILY [facility] Piperacillin Sod/Tazobactam (Sod 3.375 gm/ Dextrose) 50 mls @ 100 mls/hr IVPB Q8H-IV [facility]; Protocol Last Admin: 01/30/19 09:07 Dose: 100 mls/hr Lisinopril (Prinivil) 20 mg PO DAILY [facility] Morphine Sulfate (Morphine Sulfate) 4 mg IVPUSH Q4H PRN PRN Reason: PAIN LEVEL 7 - 10 Mupirocin (Bactroban Ointment (For Decolonization) -) 1 applic NS BID [facility] Stop: 02/02/19 21:59 Last Admin: 01/30/19 09:08 Dose: 1 applic Nicotine (Nicoderm Patch -) 21 mg TD DAILY [facility] Last Admin: 01/30/19 09:08 Dose: 21 mg Ondansetron HCl (Zofran Injection) 4 mg IVPUSH Q6H PRN PRN Reason: NAUSEA - Objective Vital Signs: Vital Signs Temperature 97.6 F 01/30/19 06:00 Pulse Rate 76 01/30/19 08:00 Respiratory Rate 18 01/30/19 08:00 Blood Pressure 152/104 H 01/30/19 08:00 O2 Sat by Pulse Oximetry (%) 97 01/29/19 21:00 Constitutional: Yes: No Distress, Calm Cardiovascular: Yes: S1, S2 Respiratory: Yes: Regular, CTA Bilaterally Gastrointestinal: Yes: Normal Bowel Sounds, Soft, Tenderness Musculoskeletal: Yes: WNL Extremities: Yes: WNL Neurological: Yes: Alert, Oriented Psychiatric: Yes: Alert, Oriented Labs: CBC, BMP 01/30/19 11:41 01/30/19 11:41 INR, PTT INR 0.99 (0.83-1.09) 01/25/19 06:15 Assessment/Plan Problem List - Problems (1) Cholelithiasis and acute cholecystitis without obstruction Code(s): K80.00 - CALCULUS OF GALLBLADDER W ACUTE CHOLECYST W/O OBSTRUCTION (2) Biliary colic symptom Code(s): K80.50 - CALCULUS OF BILE DUCT W/O CHOLANGITIS OR CHOLECYST W/O OBST (3) Abdominal pain in male Code(s): R10.9 - UNSPECIFIED ABDOMINAL PAIN (4) Obesity (BMI 30.0-34.9) Code(s): E66.9 - OBESITY, UNSPECIFIED (5) Dehydration Code(s): E86.0 - DEHYDRATION gangrene of the gall bladder plan ct abx close watch as per icu hydration rest as per surgery once patient starts tolerating diet will switch to oral cc 40 min
[2019-01-30] MEDS: ACETAMINOPHEN 1000 MG/100 ML VIAL (NON FORMULARY) IVPB PRN (14:17)
[2019-01-30] MEDS: HYDROCHLOROTHIAZIDE 12.5 MG CAPSULE (FP) PO SCH (14:21)
[2019-01-30] MEDS: LISINOPRIL 20 MG TABLET (FP) PO SCH (14:21)
--- NOTE | 2019-01-30 15:48 | PN ---
Progress Note, Physician Chief Complaint: abdominal pain History of Present Illness: 58yo male PMH obesity, uncontrolled HTN, presented with upper abdominal pain acute in onset last night at 3AM. Pain was focal to the RUQ with radiation to the back. He has been stable since surgery. Abdominal pain has improved. He is anxious to go home. No other complaints. - Current Medication List Current Medications: Active Medications Acetaminophen (Ofirmev Injection -) 1,000 mg IVPB Q8H PRN PRN Reason: PAIN Last Admin: 01/30/19 14:17 Dose: 1,000 mg Chlorhexidine Gluconate (Hibiclens For Decolonization -) 1 applic TP HS [facility] Last Admin: 01/29/19 21:35 Dose: 1 applic Heparin Sodium (Porcine) (Heparin -) 5,000 unit SQ TID [facility] Last Admin: 01/30/19 14:20 Dose: 5,000 unit Hydralazine HCl (Apresoline Injection -) 10 mg IVPUSH Q6H PRN PRN Reason: HYPERTENSION Hydrochlorothiazide (Hctz -) 12.5 mg PO DAILY [facility] Last Admin: 01/30/19 14:21 Dose: 12.5 mg Piperacillin Sod/Tazobactam (Sod 3.375 gm/ Dextrose) 50 mls @ 100 mls/hr IVPB Q8H-IV [facility]; Protocol Last Admin: 01/30/19 09:07 Dose: 100 mls/hr Lisinopril (Prinivil) 20 mg PO DAILY [facility] Last Admin: 01/30/19 14:21 Dose: 20 mg Morphine Sulfate (Morphine Sulfate) 4 mg IVPUSH Q4H PRN PRN Reason: PAIN LEVEL 7 - 10 Mupirocin (Bactroban Ointment (For Decolonization) -) 1 applic NS BID [facility] Stop: 02/02/19 21:59 Last Admin: 01/30/19 09:08 Dose: 1 applic Nicotine (Nicoderm Patch -) 21 mg TD DAILY [facility] Last Admin: 01/30/19 09:08 Dose: 21 mg Ondansetron HCl (Zofran Injection) 4 mg IVPUSH Q6H PRN PRN Reason: NAUSEA - Objective Vital Signs: Vital Signs Temperature 98.1 F 01/30/19 10:00 Pulse Rate 69 01/30/19 14:00 Respiratory Rate 26 H 01/30/19 14:00 Blood Pressure 157/89 01/30/19 14:00 O2 Sat by Pulse Oximetry (%) 97 01/30/19 09:00 Vital Signs Period Temp Pulse Resp BP Sys/Peters Pulse Ox Last 24 Hr 97.6 F-98.1 F 54-76 15-26 127-173/80-104 97-97 Intake & Output 01/30/19 01/30/19 01/30/19 07:59 15:59 23:59 Intake Total 290 650 Output Total 355 20 Balance -65 630 Intake: IV 140 Lactated Ringers Solution 140 1,000 ml @ 125 mls/hr IV ASDIR LONI Rx#: [id number] IVPB 150 150 Oral 500 Output: Drainage 5 20 Right Lower Abdomen 5 20 Urine 350 Void 350 Other: Voiding Method Urinal # Unmeasured Voids Void 1 2 Bowel Movement No No Constitutional: Yes: Well Nourished, No Distress, Calm, Obese Eyes: Yes: Conjunctiva Clear, EOM Intact HENT: Yes: Atraumatic, Normocephalic Neck: Yes: Supple, Trachea Midline Cardiovascular: Yes: Regular Rate and Rhythm, S1, S2 Respiratory: Yes: Regular, CTA Bilaterally Gastrointestinal: Yes: Normal Bowel Sounds, Soft. No: Tenderness ...Rectal Exam: Yes: Deferred Genitourinary: No: CVA Tenderness - Left, CVA Tenderness - Right Breast(s): No: Mass, Skin Changes Musculoskeletal: No: Muscle Pain, Muscle Weakness Extremities: No: Cool, Cyanosis Edema: No Peripheral Pulses WNL: Yes Peripheral Pulses: Left Radial: 2+, Right Radial: 2+, Left Doralis Pedis: 2+, Right Dorsalis Pedis: 2+, Left Femoral: 2+, Right Femoral: 2+ Integumentary: No: Jaundice, Skin Tear Neurological: Yes: Alert, Oriented Psychiatric: Yes: Alert, Oriented Labs: CBC, BMP 01/30/19 11:41 01/30/19 11:41 INR, PTT INR 0.99 (0.83-1.09) 01/25/19 06:15 Problem List - Problems (1) Cholelithiasis and acute cholecystitis without obstruction Assessment/Plan: 58yo male with uncontrolled HTN obesity and symptomatic cholelithiasis with now elevated Tbili 1.4-1.6, unable to di MRCP, can do IOC but OR not equiped to do stone retrieval or intervention. POD#3 s/p subtotal laparoscopic cholecystetctomy for a gangrenous cholecystitis Diet as tolerated IV antibiotics per ID consider transfer to floor Planned discharge home Thursday. This patient is in guarded condition. Time spent reviewing chart, examining patient, talking with providers and/or family and documentation is 35 minutes. Code(s): K80.00 - CALCULUS OF GALLBLADDER W ACUTE CHOLECYST W/O OBSTRUCTION (2) Biliary colic symptom Code(s): K80.50 - CALCULUS OF BILE DUCT W/O CHOLANGITIS OR CHOLECYST W/O OBST (3) Abdominal pain in male Code(s): R10.9 - UNSPECIFIED ABDOMINAL PAIN (4) Obesity (BMI 30.0-34.9) Code(s): E66.9 - OBESITY, UNSPECIFIED (5) Dehydration Code(s): E86.0 - DEHYDRATION
[2019-01-30] MEDS ORDERED: ACETAMINOPHEN 325 MG TABLET (FP) PO PRN (16:16)
[2019-01-30] MEDS ORDERED: IBUPROFEN 600 MG TABLET (FP) PO PRN (16:16)
[2019-01-30] MEDS ORDERED: oxyCODONE HCL 5 MG TABLET PO PRN (16:18)
[2019-01-30] MEDS: AMINO ACIDS/PROTEIN HYDROLYS 30 ML LIQUID.PKT PO SCH (17:26)
[2019-01-31] MEDS ORDERED: DEXTROSE 5%-WATER - 50 ML IVPB ONE ×2 (02:25→07:52)
[2019-01-31] MEDS ORDERED: PIPERACILLIN/TAZOBACTAM 3.375 GM VIAL IVPB ONE ×2 (02:25→07:52)
[2019-01-31] MEDS: PIPERACILLIN/TAZOB 3.375 GM 3.375 GM in DEXTROSE 5%-WATER - 50 ML IVPB SCH ×2 (02:34→09:07)
[2019-01-31 06:32] LABS: BASO % 0.6 % (0-2.0); EOS % 1.2 % (0-4.5); HEMATOCRIT 43.7 % (35.4-49); HEMOGLOBIN 15.1 GM/dL (11.7-16.9); LYMPH % 17.9 % (8-40); MCHC 34.7 g/dl (32.0-35.9); MEAN PLT VOLUME 8.3 fl (7.5-11.1); MONO % 9.1 % (3.8-10.2); NEUT % 71.2 % (42.8-82.8); PLATELET COUNT 238 K/MM3 (134-434); RBC 4.33 M/mm3 (4.00-5.60); RDW 13.2 % (11.9-15.9); WHITE BLOOD COUNT 7.7 K/mm3 (4.0-10.0)
[2019-01-31] MEDS: HEPARIN NA (PORCINE) 5,000 UNITS/ML 1ML VIAL SQ SCH (06:43)
[2019-01-31 07:01] LABS: ALBUMIN 2.3 g/dl (3.4-5.0); BILIRUBIN,TOTAL 0.4 mg/dL (0.2-1); BLOOD UREA NITROGEN 16.3 mg/dL (7-18); CALCIUM 8.2 mg/dL (8.5-10.1); CREATININE 0.8 mg/dL (0.55-1.3); MAGNESIUM 2.2 mg/dL (1.8-2.4); POTASSIUM 3.6 mmol/L (3.5-5.1); TOT PROT 5.2 g/dl (6.4-8.2)
--- NOTE | 2019-01-31 07:23 | DS ---
Physical Examination Vital Signs: Vital Signs Temperature 98.1 F 01/30/19 10:00 Pulse Rate 68 01/31/19 04:00 Respiratory Rate 27 H 01/31/19 04:00 Blood Pressure 131/84 01/31/19 04:00 O2 Sat by Pulse Oximetry (%) 97 01/30/19 21:00 Findings/Remarks: he has been stable is surgery. tolerating diet. ambulating, voiding well. he is ready to be discharged Constitutional: Yes: Well Nourished, No Distress, Calm, Obese Eyes: Yes: Conjunctiva Clear, EOM Intact HENT: Yes: Atraumatic, Normocephalic Neck: Yes: Supple, Trachea Midline Cardiovascular: Yes: Regular Rate and Rhythm, S1, S2 Respiratory: Yes: Regular, CTA Bilaterally Gastrointestinal: Yes: Normal Bowel Sounds, Soft, Abdomen, Obese, Tenderness ( incisional) ...Rectal Exam: Yes: Deferred Renal/: No: CVA Tenderness - Left, CVA Tenderness - Right Breast(s): No: Mass, Skin Changes Musculoskeletal: No: Muscle Pain, Muscle Weakness Extremities: No: Cool, Cyanosis Edema: No Peripheral Pulses WNL: Yes Peripheral Pulses: Left Radial: 2+, Right Radial: 2+, Left Doralis Pedis: 2+, Right Dorsalis Pedis: 2+, Left Femoral: 2+, Right Femoral: 2+ Integumentary: Yes: Incision. No: Jaundice Wound/Incision: Yes: Clean/Dry, Well Approximated, Open to air Neurological: Yes: Alert, Oriented Psychiatric: Yes: Alert, Oriented Labs: CBC, BMP 01/31/19 05:04 01/31/19 05:04 Discharge Summary Reason For Visit: CALCULUS OF GALLBLADDER WITH ACUTE CHOLECYSTITIS Current Active Problems Abdominal pain in male (Acute) Acute gangrenous cholecystitis (Acute) Biliary colic symptom (Acute) Borderline hyperglycemia (Acute) Cholelithiasis and acute cholecystitis without obstruction (Acute) Dehydration (Acute) HTN (hypertension) (Acute) Obesity (BMI 30.0-34.9) (Acute) Procedures: Principal: laparoscopic subtotal cholecystectomy Hospital Course: admitted with early acute cholecystitis that progressed rapidly to gangrenous cholecystitis. had an uneventful subtotal cholecystectomy after work up was completed. noted to recover well and now be stable for discharge home. Condition: Improved - Instructions Diet, Activity, Other Instructions: Postoperative instructions: You had a laparoscopic cholecystectomy on 01/28/[address] Kiel Mccarthy of [facility]. Activity: Resume your usual activities gradually, but no heavy exertion or lifting more than 10-15 pounds for 1 month. Remove dressings 48 hours after surgery; sticky tapes underneath will fall off by themselves. You may shower daily starting then, just pat the incision areas dry. No bath or swimming until skin incisions have healed. Eat lightly at first, but advance to your usual diet as tolerated. Pain: For pain, you may use and alternate Tylenol (acetaminophen) 1-2 pills and/ or ibuprofen 200 mg (1-3 pills) every 6 hours each as needed; this means that you can take one OR the other at 3-hour intervals. If you are prescribed a Tylenol/narcotic combination for severe pain, use it instead of plain Tylenol as needed and switch back when your pain starts decreasing. Do not take more than 4000mg of acetaminophen in a day. Take medications as prescribed or indicated on the labeling. Follow-up: Call Dr. Mccarthy' office at [phone] to make your postop appointment (Thursday in approximately 2 weeks after surgery). Clinic is held in the [facility] on the first floor of [facility]. Call the office if you have: * increasing pain not responsive to pain medication * fever of 101F or higher * vomiting * unusual or increasing bleeding or drainage from wounds * increasing redness or swelling at wound sites * inability to urinate Also, see your primary medical doctor within 1-2 weeks. Referrals: Lavon Rivera MD [Primary Care Provider] - Disposition: HOME - Home Medications Comprehensive Discharge Medication List: Ambulatory Orders Aspirin [Aspirin EC] 81 mg PO PRN 01/25/19 Lisinopril/Hydrochlorothiazide [Lisinopril-Hctz 20-12.5 mg Tab] 1 each PO DAILY 01/25/19 Amox-Tr/K Cl [Augmentin - 875Mg Tablet] 1 tab PO BID #14 tablet 01/30/19 Oxycodone HCl/Acetaminophen [Percocet 5/325 -] 1 tab PO Q6H #40 tab MDD 4
[2019-01-31 07:40] VITALS: TEMP 98.7
[2019-01-31] MEDS: AMINO ACIDS/PROTEIN HYDROLYS 30 ML LIQUID.PKT PO SCH (08:39)
[2019-01-31 08:55] VITALS: BP 141/92; PULSE 70
[2019-01-31] MEDS: LISINOPRIL 20 MG TABLET (FP) PO SCH (09:09)
[2019-01-31] MEDS: NICOTINE 21 MG/24 HOURS TOPICAL PATCH TD SCH (09:09)
[2019-01-31] MEDS: HYDROCHLOROTHIAZIDE 12.5 MG CAPSULE (FP) PO SCH (09:09)
[2019-01-31] MEDS: MUPIROCIN 2% TOPICAL OINTMENT FOR DECOLONIZATION NS SCH (09:10)
--- NOTE | 2019-01-31 10:21 | PN ---
Physical Exam: SUBJECTIVE: Patient seen and examined OBJECTIVE: Vital Signs Period Temp Pulse Resp BP Sys/Peters Pulse Ox Last 24 Hr 98.7 F 65-72 17-27 128-157/83-110 97-97 GENERAL: The patient is awake, alert, and fully oriented, in no acute distress. HEAD: Normal with no signs of trauma. EYES: PERRL, extraocular movements intact, sclera anicteric, conjunctiva clear. No ptosis. ENT: Ears normal, nares patent, oropharynx clear without exudates, moist mucous membranes. NECK: Trachea midline, full range of motion, supple. LUNGS: Breath sounds equal, clear to auscultation bilaterally, no wheezes, no crackles, no accessory muscle use. HEART: Regular rate and rhythm, S1, S2 without murmur, rub or gallop. ABDOMEN: Soft, nontender, nondistended, normoactive bowel sounds, no guarding, no rebound, no hepatosplenomegaly, no masses. EXTREMITIES: 2+ pulses, warm, well-perfused, no edema. NEUROLOGICAL: Cranial nerves II through XII grossly intact. Normal speech, gait not observed. PSYCH: Normal mood, normal affect. SKIN: Warm, dry, normal turgor, no rashes or lesions noted Laboratory Results - last 24 hr 01/30/19 01/30/19 01/31/19 11:41 11:41 05:04 WBC 7.5 7.7 RBC 4.57 4.33 Hgb 16.1 15.1 Hct 46.6 43.7 MCV 101.8 H 101.0 H MCH 35.1 H 35.0 H MCHC 34.5 34.7 RDW 13.6 13.2 Plt Count 248 D 238 MPV 8.3 8.3 Absolute Neuts (auto) 5.7 5.5 Neutrophils % 76.1 71.2 Lymphocytes % 15.4 D 17.9 Monocytes % 7.3 D 9.1 Eosinophils % 0.6 D 1.2 D Basophils % 0.6 D 0.6 Nucleated RBC % 0 0 Sodium 140 Potassium 3.9 Chloride 105 Carbon Dioxide 30 Anion Gap 5 L BUN 17.5 Creatinine 0.9 Est GFR (CKD-EPI)AfAm 108.73 Est GFR (CKD-EPI)NonAf 93.82 Random Glucose 94 Calcium 8.6 Phosphorus 2.3 L Magnesium 2.4 Total Bilirubin 0.5 AST 35 ALT 34 Alkaline Phosphatase 84 Total Protein 6.1 L Albumin 2.6 L 01/31/19 05:04 WBC RBC Hgb Hct MCV MCH MCHC RDW Plt Count MPV Absolute Neuts (auto) Neutrophils % Lymphocytes % Monocytes % Eosinophils % Basophils % Nucleated RBC % Sodium 140 Potassium 3.6 Chloride 104 Carbon Dioxide 29 Anion Gap 7 L BUN 16.3 Creatinine 0.8 Est GFR (CKD-EPI)AfAm 114.13 Est GFR (CKD-EPI)NonAf 98.47 Random Glucose 90 Calcium 8.2 L Phosphorus 4.0 Magnesium 2.2 Total Bilirubin 0.4 AST 32 ALT 34 Alkaline Phosphatase 73 Total Protein 5.2 L Albumin 2.3 L Active Medications Generic Name Dose Route Start Last Admin Trade Name Freq PRN Reason Stop Dose Admin Acetaminophen 650 mg 01/30/19 16:16 Tylenol - PO Q6H PRN PAIN LEVEL 1-5 Amino Acids 30 ml 01/30/19 17:30 01/31/19 08:39 Prosource No Carb Liquid Pkt PO 30 ml BID@0800,1730 LONI Administration Heparin Sodium (Porcine) 5,000 unit 01/28/19 22:00 01/31/19 06:43 Heparin - SQ 5,000 unit TID LONI Administration Hydralazine HCl 10 mg 01/28/19 13:30 Apresoline Injection - IVPUSH Q6H PRN HYPERTENSION Hydrochlorothiazide 12.5 mg 01/30/19 11:15 01/31/19 09:09 Hctz - PO 12.5 mg DAILY [facility]ONI Administration Piperacillin Sod/Tazobactam 50 mls @ 100 mls/hr 01/28/19 18:00 01/31/19 09:07 Sod 3.375 gm/ Dextrose IVPB 100 mls/hr Q8H-IV [facility]ONI Administration Protocol Ibuprofen 600 mg 01/30/19 16:16 Motrin - PO Q6H PRN PAIN LEVEL 1-5 Lisinopril 20 mg 01/30/19 11:15 01/31/19 09:09 Prinivil PO 20 mg DAILY [facility] Administration Mupirocin 1 applic 01/28/19 22:00 01/31/19 09:10 Bactroban Ointment (For Decolonization) - NS 02/02/19 21:59 1 applic BID LONI Administration Nicotine 21 mg 01/29/19 10:00 01/31/19 09:09 Nicoderm Patch - TD 21 mg DAILY [facility] Administration Ondansetron HCl 4 mg 01/28/19 13:30 Zofran Injection IVPUSH Q6H PRN NAUSEA Oxycodone HCl 5 mg 01/30/19 16:18 Roxicodone - PO Q6H PRN PAIN LEVEL 7 - 10 CBC, BMP 01/31/19 05:04 01/31/19 05:04 ASSESSMENT/PLAN: ATTENDING PHYSICIAN STATEMENT I saw and evaluated the patient. I reviewed the resident's note and discussed the case with the resident. I agree with the resident's findings and plan as documented. SUBJECTIVE: OBJECTIVE: ASSESSMENT AND PLAN:
--- NOTE | 2019-01-31 11:36 | PN ---
Physical Exam: SUBJECTIVE: Patient seen and examined at bedside, appears well. POD #3 s/p laparoscopic cholecystectomy. He has been stable since surgery. Abdominal pain has improved, drain as been removed and dressing is c/d/i. Patient denies having a BM, but reports he "feels one coming". He is anxious to go home. No other complaints. OBJECTIVE: Vital Signs Period Temp Pulse Resp BP Sys/Peters Pulse Ox Last 24 Hr 98.7 F 65-72 17-27 128-157/83-110 97-97 GENERAL: The patient is awake, alert, and fully oriented, in no acute distress. HEAD: Normal with no signs of trauma. EYES: PERRL, extraocular movements intact, sclera anicteric, conjunctiva clear. No ptosis. ENT: Ears normal, nares patent, oropharynx clear without exudates, moist mucous membranes. NECK: Trachea midline, full range of motion, supple. LUNGS: Breath sounds equal, clear to auscultation bilaterally, no wheezes, no crackles, no accessory muscle use. HEART: Regular rate and rhythm, S1, S2 without murmur, rub or gallop. ABDOMEN: Soft, nontender, nondistended, normoactive bowel sounds, surgical wounds c/d/i with overlying surgical dressing. EXTREMITIES: 2+ pulses, warm, well-perfused, no edema. NEUROLOGICAL: Cranial nerves II through XII grossly intact. Normal speech, gait not observed. PSYCH: Normal mood, normal affect. SKIN: Warm, dry, normal turgor, no rashes or lesions noted Laboratory Results - last 24 hr 01/30/19 01/30/19 01/31/19 11:41 11:41 05:04 WBC 7.5 7.7 RBC 4.57 4.33 Hgb 16.1 15.1 Hct 46.6 43.7 MCV 101.8 H 101.0 H MCH 35.1 H 35.0 H MCHC 34.5 34.7 RDW 13.6 13.2 Plt Count 248 D 238 MPV 8.3 8.3 Absolute Neuts (auto) 5.7 5.5 Neutrophils % 76.1 71.2 Lymphocytes % 15.4 D 17.9 Monocytes % 7.3 D 9.1 Eosinophils % 0.6 D 1.2 D Basophils % 0.6 D 0.6 Nucleated RBC % 0 0 Sodium 140 Potassium 3.9 Chloride 105 Carbon Dioxide 30 Anion Gap 5 L BUN 17.5 Creatinine 0.9 Est GFR (CKD-EPI)AfAm 108.73 Est GFR (CKD-EPI)NonAf 93.82 Random Glucose 94 Calcium 8.6 Phosphorus 2.3 L Magnesium 2.4 Total Bilirubin 0.5 AST 35 ALT 34 Alkaline Phosphatase 84 Total Protein 6.1 L Albumin 2.6 L 01/31/19 05:04 WBC RBC Hgb Hct MCV MCH MCHC RDW Plt Count MPV Absolute Neuts (auto) Neutrophils % Lymphocytes % Monocytes % Eosinophils % Basophils % Nucleated RBC % Sodium 140 Potassium 3.6 Chloride 104 Carbon Dioxide 29 Anion Gap 7 L BUN 16.3 Creatinine 0.8 Est GFR (CKD-EPI)AfAm 114.13 Est GFR (CKD-EPI)NonAf 98.47 Random Glucose 90 Calcium 8.2 L Phosphorus 4.0 Magnesium 2.2 Total Bilirubin 0.4 AST 32 ALT 34 Alkaline Phosphatase 73 Total Protein 5.2 L Albumin 2.3 L ASSESSMENT/PLAN: Mr. Wilkerson is 58 year old male with a history of hypertension, obesity, smoking (70pack-years), possible sleep apnea initially presented to the ED for abdominal pain, admitted for evaluation and treatment of acute calculous cholecystitis s/p laparoscopic cholecystectomy (POD#3) #Acute Calculous, Gangrenous Cholecystitis #Hypertension Neurological -no acute neurologic deficits Cardiovascular -history of hypertension, continuing hydralazine 10mg q6h PRN hypertension -monitor BPs postoperatively in the setting of gangrenous cholecystitis Pulmonary -no acute deficits -monitor O2 sat while in ICU Gastrointestinal -acute gangrenous cholecystitis: s/p laparoscopic cholecystectomy w/ Dr. Mccarthy ( POD#3) -CT/US reviewed -doing well post-operatively, patient reports flatus but no BM -monitor vital signs -encourage incentive spirometry -continue zosyn -GI/surgery recommendations appreciated -regular diet FEN Regular diet Prophylaxis -ambulating Disposition -Patient is stable and ready for discharge home Visit type - Emergency Visit Emergency Visit: Yes ED Registration Date: 01/25/19 Care time: The patient presented to the Emergency Department on the above date and was hospitalized for further evaluation of their emergent condition. - New Patient This patient is new to me today: Yes Date on this admission: 01/31/19 - Critical Care Critical Care patient: Yes Total Critical Care Time (in minutes): 40 Critical Care Statement: The care of this patient involved high complexity decision making to prevent further life threatening deterioration of the patient 's condition and/or to evaluate & treat vital organ system(s) failure or risk of failure. ATTENDING PHYSICIAN STATEMENT I saw and evaluated the patient. I reviewed the resident's note and discussed the case with the resident. I agree with the resident's findings and plan as documented. SUBJECTIVE: OBJECTIVE: ASSESSMENT AND PLAN:
--- NOTE | 2019-01-31 11:46 | PN ---
Teaching Attending Note Name of Resident: Silvia Lemos ATTENDING PHYSICIAN STATEMENT I saw and evaluated the patient. I reviewed the resident's note and discussed the case with the resident. I agree with the resident's findings and plan as documented. SUBJECTIVE: OOB to chair. Feels overall better No CP or SOB. Minimal abdominal discomfort. Intake & Output 01/28/19 01/29/19 01/30/19 01/31/19 23:59 23:59 23:59 23:59 Intake Total 4700 2585 1040 100 Output Total 1155 1255 375 Balance 3545 1330 665 100 Weight 216 lb 224 lb 8 oz Last Vital Signs Temp Pulse Resp BP Pulse Ox 98.7 F 70 22 H 141/92 97 01/31/19 06:00 01/31/19 08:00 01/31/19 08:46 01/31/19 08:00 01/31/19 08:46 GENERAL: awake, alert, and fully oriented, in no acute distress. HEAD: Normal with no signs of trauma. EYES: PERRL, extraocular movements intact, sclera anicteric, conjunctiva clear. No ptosis. NECK: Trachea midline, full range of motion, supple. LUNGS: Breath sounds equal, clear to auscultation bilaterally, no wheezes, no crackles, no accessory muscle use. HEART: Regular rate and rhythm, S1, S2 without murmur, rub or gallop. ABDOMEN: Soft, minimal tenderness RUQ, (+) BS EXTREMITIES: 2+ pulses, warm, well-perfused, no edema. NEUROLOGICAL: Non-focal PSYCH: Normal mood, normal affect. SKIN: Warm, dry, normal turgor, no rashes or lesions noted Laboratory Results - last 24 hr 01/30/19 01/30/19 01/31/19 11:41 11:41 05:04 WBC 7.5 7.7 RBC 4.57 4.33 Hgb 16.1 15.1 Hct 46.6 43.7 MCV 101.8 H 101.0 H MCH 35.1 H 35.0 H MCHC 34.5 34.7 RDW 13.6 13.2 Plt Count 248 D 238 MPV 8.3 8.3 Absolute Neuts (auto) 5.7 5.5 Neutrophils % 76.1 71.2 Lymphocytes % 15.4 D 17.9 Monocytes % 7.3 D 9.1 Eosinophils % 0.6 D 1.2 D Basophils % 0.6 D 0.6 Nucleated RBC % 0 0 Sodium 140 Potassium 3.9 Chloride 105 Carbon Dioxide 30 Anion Gap 5 L BUN 17.5 Creatinine 0.9 Est GFR (CKD-EPI)AfAm 108.73 Est GFR (CKD-EPI)NonAf 93.82 Random Glucose 94 Calcium 8.6 Phosphorus 2.3 L Magnesium 2.4 Total Bilirubin 0.5 AST 35 ALT 34 Alkaline Phosphatase 84 Total Protein 6.1 L Albumin 2.6 L 01/31/19 05:04 WBC RBC Hgb Hct MCV MCH MCHC RDW Plt Count MPV Absolute Neuts (auto) Neutrophils % Lymphocytes % Monocytes % Eosinophils % Basophils % Nucleated RBC % Sodium 140 Potassium 3.6 Chloride 104 Carbon Dioxide 29 Anion Gap 7 L BUN 16.3 Creatinine 0.8 Est GFR (CKD-EPI)AfAm 114.13 Est GFR (CKD-EPI)NonAf 98.47 Random Glucose 90 Calcium 8.2 L Phosphorus 4.0 Magnesium 2.2 Total Bilirubin 0.4 AST 32 ALT 34 Alkaline Phosphatase 73 Total Protein 5.2 L Albumin 2.3 L ASSESSMENT/PLAN: Problem List - Problems (1) Cholelithiasis and acute cholecystitis without obstruction Code(s): K80.00 - CALCULUS OF GALLBLADDER W ACUTE CHOLECYST W/O OBSTRUCTION (2) HTN (hypertension) Code(s): I10 - ESSENTIAL (PRIMARY) HYPERTENSION PLAN: OOB to chair PO as tolerated D/C planning Dr Forde
--- NOTE | 2019-01-31 17:32 | PATH ---
Surgical Pathology Report Patient Name: LOLITA [facility]. Rec. #: [id number] /Age/Gender: 1960 (Age: 58) / M Account: [id number] Location: ICU OFFICE EQUIPMENT MECHANIC Taken: 01/28/2019 Received: 01/28/2019 Reported: 01/31/2019 Physicians: Kiel Mccarthy M.D. Specimen(s) Received GALLBLADDER Clinical History Acute cholecystitis/gangrenous, gallstones Final Diagnosis GALLBLADDER, PORTION, LAPAROSCOPIC PARTIAL CHOLECYSTECTOMY: ACUTE GANGRENOUS CHOLECYSTITIS. Electronically Signed Ivet Rhoades M.D. Gross Description Received in formalin, labeled "gallbladder (portion)" is a 6 x 3 x 1 cm. markedly disrupted gallbladder. No cystic duct is identified. The outer surface is red, hemorrhagic and varies from smooth to shaggy. The mucosa is hemorrhagic and focally necrotic. No stones are identified. The wall of the gallbladder measures 0.2 cm. in thickness. Special Librarian sections are submitted in one cassette. MLSZ/01/28/2019 felipe/01/28/2019
--- NOTE | 2019-02-01 09:02 | PN ---
Progress Note, Physician History of Present Illness: stable no new issues - Objective Vital Signs: Vital Signs Temperature 98.7 F 01/31/19 06:00 Pulse Rate 70 01/31/19 08:00 Respiratory Rate 22 H 01/31/19 08:46 Blood Pressure 141/92 01/31/19 08:00 O2 Sat by Pulse Oximetry (%) 97 01/31/19 08:46 Constitutional: Yes: No Distress, Calm Cardiovascular: Yes: Regular Rate and Rhythm Respiratory: Yes: Regular, CTA Bilaterally Gastrointestinal: Yes: Normal Bowel Sounds, Soft Musculoskeletal: Yes: WNL Extremities: Yes: WNL Wound/Incision: Yes: Clean/Dry Neurological: Yes: Alert, Oriented Labs: CBC, BMP 01/31/19 05:04 01/31/19 05:04 INR, PTT INR 0.99 (0.83-1.09) 01/25/19 06:15 Assessment/Plan Problem List - Problems (1) Cholelithiasis and acute cholecystitis without obstruction Code(s): K80.00 - CALCULUS OF GALLBLADDER W ACUTE CHOLECYST W/O OBSTRUCTION (2) Biliary colic symptom Code(s): K80.50 - CALCULUS OF BILE DUCT W/O CHOLANGITIS OR CHOLECYST W/O OBST (3) Abdominal pain in male Code(s): R10.9 - UNSPECIFIED ABDOMINAL PAIN (4) Obesity (BMI 30.0-34.9) Code(s): E66.9 - OBESITY, UNSPECIFIED (5) Dehydration Code(s): E86.0 - DEHYDRATION gangrene of the gall bladder plan oral abx continue current mgmt complete the course
--- NOTE | 2019-02-02 11:14 | OP ---
DATE OF OPERATION: 01/28/2019 PREOPERATIVE DIAGNOSIS: Acute cholecystitis. POSTOPERATIVE DIAGNOSIS: Acute gangrenous cholecystitis. OPERATION: Subtotal laparoscopic cholecystectomy. ATTENDING SURGEON: Kiel Mccarthy MD COREMAKER SUPERVISOR: No one. ANESTHESIOLOGIST: Piero Fofana MD ANESTHESIA TYPE: General with local, local consisting of 0.5% Marcaine, a total of 20 mL given at the port sites. ESTIMATED BLOOD LOSS: 100 mL. INTRAVENOUS FLUID: Crystalloid, 1500 mL. DRAINS REMAINING: A JOHNSON size 10 flat to bulb suction in the right upper quadrant. SPECIMEN: A portion of the gallbladder. FINDINGS: Patient had patchy transmural gangrene throughout the gallbladders wall. There was bile spillage in the upper abdomen, fulguration of the infundibular cup, and cleared all stones in the gallbladder. INDICATIONS: Patient is a 58-year-old male, obese, unknown health history, who presented with right upper quadrant pain for 3 days. Patient was counseled regarding risks, benefits, and alternatives to a laparoscopic cholecystectomy. He signed informed consent and taken to the procedure. DESCRIPTION OF PROCEDURE: The patient was brought to the operating room, placed in supine position on the operating table. Lower extremities had SCDs placed to compression. Patient was induced with general anesthesia, endotracheally intubated. He received intravenous antibiotics and was receiving Zosyn as well as Flagyl prior to surgery. A formal time-out was completed identifying the operative site and position. With all parties in agreement, after sterile prep and drape of the anterior abdominal wall in standard fashion, we began with supraumbilical approach for Avery entry into the abdomen. It was incised with a 15-blade scalpel, deepened and widened through subcutaneous tissues to the rectus fascia. Once opened, a blunt entry was made with a Leo clamp, and 12-mm Avery port was installed into the abdomen, and pneumoperitoneum was established at 15 mmHg. With establishment of the pneumoperitoneum, we inspected the abdomen. There appeared to be patchy necrosis of the gallbladder, which was unexpected. Omental caking adjacent to the gallbladder, which was taken down. We placed additional operative ports at the subxiphoid position as well as 2 in the right lateral abdomen. This allowed for retraction of the gallbladder towards the left shoulder and cranially. With this done, it was clear that there was a gangrenous gallbladder. There was some exudative material which was suctioned from the abdomen. When the gallbladder was grasped, there was bile spillage because of necrosis of the wall. Decision was made in order to safely remove the problem and remove the infected source to do a subtotal cholecystectomy as the cystic structures could not be identified. The gallbladder was taken down from the liver in a dome-down approach using L-hook cautery. This was carried through with retraction of the infundibulum, taken down to the infundibular cup. At which point, the gallbladder was entered and transected. It was decompressed with a suction device removing all bile and stones. Once 75% of the gallbladder had been removed from the gallbladder bed as well as hemostasis obtained using Endoclips at the site of the cystic artery entry into the gallbladder wall, hemostasis was obtained again with Bovie cautery along the liver bed. The 75% of the gallbladder subtotal cholecystectomy specimen was then retrieved from the abdomen with the EndoCatch bag after residing the camera to the subxiphoid position, and EndoCatch bag 10 mm used to retrieve the portion of the gallbladder. It was sent for final pathologic confirmation. At which point, we began first with irrigation of the remaining bile spillage and staining of the wall. At this point, decision was made to leave a size 10 JOHNSON flat, which was introduced through the umbilical port into the site and fastened to the skin with a 2-0 nylon. The patient was then returned to level position. Care was taken to tuck the omentum up into the area, and after fulgurating the remaining infundibular cup of the gallbladder and the cystic structures, the ports were then removed under direct visualization, and pneumoperitoneum relieved. Care was taken to then close the umbilical port with a 0 Vicryl in a figure-of-8 fashion, ablating the Avery entry port. The patient then had the ports cleaned with sterile irrigation fluid and closed with 4-0 Vicryl in subcuticular fashion at all port sites except for the drainage. The patient had sterile dressings placed, and the drain was placed to bulb suction. He was awoken from general anesthesia having tolerated the procedure well, given instructions to follow up in a period of 2 weeks. All counts were correct prior to closure of the abdomen. MD ROGER Verduzco/[id number]
== END 2019-01-31 10:49 | disposition home or self-care (01) | DRG 419 ==
LOC: JER 04:57 → JASUSAT 13:54 → J6S 17:44 → JSAMEDAYSX 01-28 14:30 → JICU 01-28 18:08
PROC: 0FB44ZX Excision of Gallbladder, Percutaneous Endoscopic Approach, Diagnostic (ICD-10-PCS; 2019-01-28)
PROC: 0F544ZZ Destruction of Gallbladder, Percutaneous Endoscopic Approach (ICD-10-PCS; principal; 2019-01-28 10:00)
DX: K80.00 Calculus of gallbladder with acute cholecystitis without obstruction (principal); K82.A1 Gangrene of gallbladder in cholecystitis; I10 Essential (primary) hypertension; E66.9 Obesity, unspecified; E86.0 Dehydration; Z68.31 Body mass index [BMI] 31.0-31.9, adult; F17.210 Nicotine dependence, cigarettes, uncomplicated; D75.1 Secondary polycythemia; J44.9 Chronic obstructive pulmonary disease, unspecified
CPT/HCPCS: 36415; 71275-TC; 74174-TC; 76705-TC; 80053; 80061; 82248; 82550; 82962; 83036; 83605; 83690; 83721; 83735; 84100; 84484; 85025; 85610; 86850; 86900; 86901; 88304-TC; 90732; 93005; 93010; 94010; 94760; 99284-25; G0009; J0131; J1644